=== PATIENT | female | born 1965 | race Caucasian/White ===

== ENCOUNTER 2016-06-30 15:33 | Emergency (ER) | payer BC, MEDICARE ==
[2016-06-30 15:54] VITALS: BP 121/79; PULSE 79; RESP 20; TEMP 98.2
[2016-06-30] MEDS ORDERED: ORPHENADRINE 30 MG/ML 2 ML VIAL IM STA (16:45)
[2016-06-30] MEDS ORDERED: KETOROLAC 60 MG/2 ML VIAL IM STA (16:45)
--- NOTE | 2016-06-30 17:03 | ED ---
Upper Extremity HPI - General Chief Complaint: Extremity Injury, Upper Stated Complaint: Arm/Neck Pain Time Seen by Provider: 06/30/16 16:38 Source: patient, RN notes reviewed Mode of arrival: ambulatory Limitations: no limitations - History of Present Illness Initial Comments: 51-year-old female presents emergency Department chief complaint of right-sided neck pain. Patient states she got shopping she just got this pain to the right side of her neck is throbbing type pain that is constant. Patient states that she touches the area to increased pain. Patient states it feels some muscle soreness like a spasm. Patient states she can't move the shoulder she can move the neck. Patient states that she just continued to have the pain for the last hour or so it's very tender when she touches so she thought that she should be seen. Patient does have a history of fibromyalgia. Patient states that she has no other complaints at this time. Patient denies any recent fever, chills, shortness of breath, chest pain, back pain, abdominal pain, nausea vomiting, numbness or tingling, dysuria or hematuria, constipation or diarrhea, headaches or visual changes, or any other current symptoms. - Related Data Home Medications Medication Instructions Recorded Confirmed Atorvastatin [Lipitor] 10 mg PO DAILY 09/20/15 06/30/16 Estrogen,Con/M-Progest Acet 1 tab PO DAILY 09/20/15 06/30/16 [Prempro 0.3 mg-1.5 mg Tablet] Pregabalin [Lyrica] 100 mg PO BID 09/20/15 06/30/16 Suvorexant [Belsomra] 5 mg PO HS 09/20/15 06/30/16 Albuterol Sulfate [Proair Hfa] 1 - 2 puff INHALATION RT-Q6H PRN 10/21/15 [id number] 1 - 2 tab PO Q8H PRN 10/21/15 06/30/16 [Excedrin] DULoxetine HCL [Cymbalta] 90 mg PO DAILY 10/21/15 06/30/16 HYDROcodone/APAP 10-325MG [[place] 1 tab PO Q6H PRN 10/21/15 06/30/16 10-325] Previous Rx's Medication Instructions Recorded Orphenadrine [Norflex] 100 mg PO Q12H #10 tablet.er 06/30/16 Allergies Allergy/AdvReac Type Severity Reaction Status Date / Time No Known Allergies Allergy Verified 06/30/16 15:54 Review of Systems ROS Statement: Those systems with pertinent positive or pertinent negative responses have been documented in the HPI. ROS Other: All systems not noted in ROS Statement are negative. Past Medical History Past Medical History: Fibromyalgia, Hyperlipidemia History of Any Multi-Drug Resistant Organisms: None Reported Past Surgical History: Back Surgery Additional Past Surgical History / Comment(s): hx chronic back pain withnerve damage Past Psychological History: No Psychological Hx Reported Smoking Status: Current every day smoker Past Alcohol Use History: Rare Past Drug Use History: None Reported General Exam - General Exam Comments Initial Comments: General: The patient is awake and alert, in no distress, and does not appear acutely ill. Eye: Pupils are equal, round and reactive to light. Ears, nose, mouth and throat: There are moist mucous membranes. Neck: The neck is supple, there is tenderness to palpation along the lateral aspect of the neck into the trapezius muscle. Cardiovascular: There is a regular rate and rhythm. No murmur, rub or gallop is appreciated. Respiratory: Lungs are clear to auscultation, respirations are non-labored, breath sounds are equal. No wheezes, stridor, rales, or rhonchi. Back: There is no tenderness to palpation in the midline. There is no obvious deformity. No rashes noted. Musculoskeletal: Normal ROM, no tenderness, There is no pedal edema. There is no calf tenderness or swelling. Sensation intact. Pulses equal bilaterally 2+. Neurological: CN II-XII intact, There are no obvious motor or sensory deficits. Coordination appears grossly intact. Speech is normal. Skin: Skin is warm and dry and no rashes or lesions are noted. Psychiatric: Cooperative, appropriate mood & affect, normal judgment. Limitations: no limitations Course Vital Signs 06/30/16 15:51 Temperature 98.2 F Pulse Rate 79 Respiratory 20 Rate Blood Pressure 121/79 O2 Sat by Pulse 97 Oximetry Medical Decision Making - Medical Decision Making 51-year-old female presents with what appears to be right trapezius strain along with degenerative disease which is seen on x-ray.. This time we discussed with patient. We discussed follow-up visit family's questions. Her son there controlled plan. This and they will be discharged home. We discussed return parameters and follow-up. - Radiology Data Radiology results: report reviewed, image reviewed Disposition Clinical Impression: Strain of right trapezius muscle, Degenerative disc disease, cervical Disposition: HOME SELF-CARE Condition: Stable Instructions: Cervical Strain (ED) Additional Instructions: Please use medication as discussed. Please follow up with family doctor if symptoms have not improved over the next two days. Please return to the emergency room if your symptoms increase or worsen or for any other concerns. Prescriptions: Orphenadrine [Norflex] 100 mg PO Q12H #10 tablet.er Referrals: Jay Hough III, MD [Primary Care Provider] - 1-2 days Time of Disposition: 17:21
--- NOTE | 2016-06-30 17:20 | XR ---
Cervical spine HISTORY: Shoulder pain radiating into neck 5 views of the cervical spine No comparisons Cervical vertebral bodies show preserved height, alignment, and bone mineralization. There is loss of disc height at C5-6. Some mild spondylosis is present. Prevertebral soft tissues are normal. No sign ificant foraminal encroachment. IMPRESSION: Degenerative disc disease.
== END 2016-06-30 17:15 | disposition home or self-care (01) ==
LOC: EC 15:33
DX: S46.811A Strain of other muscles, fascia and tendons at shoulder and upper arm level, right arm, initial encounter (principal); X58.XXXA Exposure to other specified factors, initial encounter; M50.30 Other cervical disc degeneration, unspecified cervical region; E78.5 Hyperlipidemia, unspecified; F17.200 Nicotine dependence, unspecified, uncomplicated; Z79.899 Other long term (current) drug therapy; Z79.890 Hormone replacement therapy
CPT/HCPCS: 99283; 96372; 72050; J2360; J1885

== ENCOUNTER → 2018-06-27 | Outpatient (CLI) | payer BC, MEDICARE ==
--- NOTE | 2018-07-01 11:00 | MM ---
Reason for exam: screening (asymptomatic). Last mammogram was performed 2 years and 2 months ago. History: Patient is postmenopausal and has history of bilateral breast cancer. Taking estrogen for 3 years 2 months. MG 3D Screening Mammo W/Cad Bilateral CC and MLO view(s) were taken. Prior study comparison: April 14, 2016, bilateral MG 3d screening mammo w/cad. March 14, 2015, mammogram, performed at [facility]. The breast tissue is heterogeneously dense. This may lower the sensitivity of mammography. No discrete abnormality. ASSESSMENT: Negative, BI-RAD 1 RECOMMENDATION: Routine screening mammogram of both breasts in 1 year.
== END | disposition home or self-care (01) ==
LOC: RADMAMWWP 15:05
PROVIDERS: ATTEND Family Medicine
DX: Z12.31 Encounter for screening mammogram for malignant neoplasm of breast (principal)
CPT/HCPCS: 77063; 77067

== ENCOUNTER → 2018-12-08 | Outpatient (CLI) | payer BC, MEDICARE ==
--- NOTE | 2018-12-08 14:36 | MR ---
EXAMINATION TYPE: MR lumbar spine wo/w con DATE OF EXAM: 12/08/2018 COMPARISON: 11/27/2015 MRI lumbar spine HISTORY: Low back pain TECHNIQUE: Multiplanar, multisequence images of the lumbar spine were acquired utilizing 10 mL intravenous Gadav ist gadolinium contrast. FINDINGS: Surgical fusion is seen of the L4-S1 vertebral bodies with intervertebral disc cages at L5- S1. Conus medullaris is unremarkable terminating at L1. Multilevel disc desiccation is seen as well a s multilevel small Schmorl's nodes. Small nonenhancing probable right superior pole renal cyst measur es 5 mm. L1-L2: Mild disc desiccation without disc herniation. No spinal canal stenosis nor neural foraminal n arrowing. L2-L3: There is disc desiccation and a very small broad-based disc bulge as well as minimal facet art hropathy and ligamentum flavum buckling however there is no evidence of spinal canal stenosis nor sujatha ral foraminal narrowing. L3-L4: There is mild facet arthropathy and ligamentum flavum buckling with a small broad-based disc b ulge however no spinal canal stenosis nor neural foraminal narrowing is seen. L4-L5: There is a broad-based disc bulge present and resection of the ligamentum flavum. No spinal ca nal stenosis nor neural foraminal narrowing. There is resection of the posterior elements. L5-S1: Intervertebral disc cages seen. No spinal canal stenosis nor neural foraminal narrowing. Resec tion of the posterior elements is present. Post contrast images demonstrate enhancing epidural fibrosis at L5-S1 on axial T1 noncontrast image 4 and postcontrast image 4. This extends from the inferior endplate of L5 to contact the anterior thec al sac and partially surrounding the exiting left L5 nerve root. There is also enhancement of the lef t L5 exiting nerve root within the thecal sac and as it exits the thecal sac. IMPRESSION: 1. Enhancing anterior left lateral epidural fibrosis at L5-S1 surrounding the forming and extending l eft L5 nerve root. There is also enhancement of the left L5 nerve root itself. 2. Mild multilevel degenerative disc disease without spinal canal stenosis nor neural foraminal narro wing.
== END | disposition home or self-care (01) ==
LOC: RADNMMAIN 11:02
PROVIDERS: ATTEND Orthopaedic Surgery
DX: M51.36 Other intervertebral disc degeneration, lumbar region (principal); G96.19 Other disorders of meninges, not elsewhere classified
CPT/HCPCS: 72158; A9585

== ENCOUNTER 2019-05-10 14:34 | Emergency (ER) | payer BC, MEDICARE ==
[2019-05-10 14:38] VITALS: BP 126/66; PULSE 85; RESP 16; TEMP 97.9
--- NOTE | 2019-05-10 15:30 | ED ---
Extremity Problem HPI - General Chief complaint: Extremity Problem,Nontraumatic Stated complaint: hand swelling/arm throbbing Time Seen by Provider: 05/10/19 14:41 Source: patient, family Mode of arrival: ambulatory Limitations: no limitations - History of Present Illness Initial comments: Patient is a 54-year-old female presenting to the emergency department with chief complaint of arm pain. Patient reports yesterday she was putting rika in a carpet for prolonged periods of time. Patient reports she went to sleep and woke up this morning she noticed some numbness and tingling in her right hand and the pain is gradually moving proximally along the right upper extremity. Patient also reports some swelling in the right hand and she is concerned her ring might be stuck in the finger. Patient denies any trauma to the hand. Patient does report full range of motion in the right hand. Patient denies any one-sided weakness or paresthesias. Patient denies blurry vision, headache, chest pain or shortness of breath. Patient denies taking any medication to alleviate the symptoms - Related Data Home Medications Medication Instructions Recorded Confirmed Atorvastatin [Lipitor] 10 mg PO DAILY 09/20/15 06/30/16 Estrogen,Con/M-Progest Acet 1 tab PO DAILY 09/20/15 06/30/16 [Prempro 0.3 mg-1.5 mg Tablet] Pregabalin [Lyrica] 100 mg PO BID 09/20/15 06/30/16 Suvorexant [Belsomra] 5 mg PO HS 09/20/15 06/30/16 Albuterol Sulfate [Proair Hfa] 1 - 2 puff INHALATION RT-Q6H PRN 10/21/15 06/30/16 [id number] 1 - 2 tab PO Q8H PRN 10/21/15 06/30/16 [Excedrin] DULoxetine HCL [Cymbalta] 90 mg PO DAILY 10/21/15 06/30/16 HYDROcodone/APAP 10-325MG [[place] 1 tab PO Q6H PRN 10/21/15 06/30/16 10-325] Previous Rx's Medication Instructions Recorded Orphenadrine [Norflex] 100 mg PO Q12H #10 tablet.er 06/30/16 Allergies Allergy/AdvReac Type Severity Reaction Status Date / Time No Known Allergies Allergy Verified 05/10/19 14:35 Review of Systems ROS Statement: Those systems with pertinent positive or pertinent negative responses have been documented in the HPI. ROS Other: All systems not noted in ROS Statement are negative. Past Medical History Past Medical History: Fibromyalgia, Hyperlipidemia History of Any Multi-Drug Resistant Organisms: None Reported Past Surgical History: Back Surgery Additional Past Surgical History / Comment(s): hx chronic back pain withnerve damage Past Psychological History: No Psychological Hx Reported Smoking Status: Current every day smoker Past Alcohol Use History: Rare Past Drug Use History: None Reported General Exam Limitations: no limitations General appearance: alert, in no apparent distress Head exam: Present: atraumatic, normocephalic, normal inspection Eye exam: Present: normal appearance Pupils: Present: normal accommodation ENT exam: Present: normal exam, mucous membranes moist Neck exam: Present: normal inspection Respiratory exam: Present: normal lung sounds bilaterally Cardiovascular Exam: Present: regular rate, normal rhythm, normal heart sounds Extremities exam: Present: normal inspection (Very mild swelling of the right hand when compared to the left. No signs of trauma. There is a ring on the fourth digit that she is unable to remove due to mild swelling in the fingers.), full ROM, tenderness (Tenderness along the anterior aspect the right wrist. Positive Phalen's test.), normal capillary refill, other (+2 ulnar and radial pulses bilaterally.) Back exam: Present: normal inspection, full ROM Neurological exam: Present: alert, oriented X3 Psychiatric exam: Present: normal affect, normal mood Skin exam: Present: warm, dry, intact, normal color Course Vital Signs 05/10/19 14:35 Temperature 97.9 F Pulse Rate 85 Respiratory 16 Rate Blood Pressure 126/66 O2 Sat by Pulse 97 Oximetry Medical Decision Making - Medical Decision Making Patient is a 54-year-old female presenting to the emergency department with a chief complaint of hand pain. Physical examination a showing a positive sounds test with some mild swelling. Patient also has some numbness and tingling that appears to be moving distantly and proximally from the wrist. The symptoms and physical examination is consistent with carpal tunnel. I advised the patient to wear a brace to help alleviate some of his symptoms. She was also advised to alternate between Tylenol and ibuprofen for pain control. Ring was removed from the fourth digit. No signs of one-sided weakness versus the other. No blurry vision headaches get instability nausea or vomiting or facial droopiness.. I low suspicion for a stroke. Strict return parameters were thoroughly discussed with patient is understanding and agreeable. Case discussed with physician. Disposition Clinical Impression: Carpal tunnel syndrome, right Disposition: HOME SELF-CARE Condition: Stable Instructions (If sedation given, give patient instructions): Carpal Tunnel Surgery (DC) Additional Instructions: Please wear a wrist brace. Alternate between Tylenol and ibuprofen for pain control. Please return to emergency department if symptoms worsen. Is patient prescribed a controlled substance at d/c from ED?: No Referrals: Jay Hough III, MD [Primary Care Provider] - 1-2 days Time of Disposition: 15:29
== END 2019-05-10 15:35 | disposition home or self-care (01) ==
LOC: EC 14:34
DX: G56.01 Carpal tunnel syndrome, right upper limb (principal); M79.7 Fibromyalgia; E78.5 Hyperlipidemia, unspecified; F17.200 Nicotine dependence, unspecified, uncomplicated; Z79.890 Hormone replacement therapy; Z79.899 Other long term (current) drug therapy; X50.9XXA Other and unspecified overexertion or strenuous movements or postures, initial encounter
CPT/HCPCS: 99283

== ENCOUNTER 2020-04-27 12:00 | Emergency (ER) | payer BC, MEDICARE ==
[2020-04-27 12:04] VITALS: RESP 18
--- NOTE | 2020-04-27 13:11 | CT ---
EXAMINATION TYPE: CT brain wo con DATE OF EXAM: 04/27/202001/2013 HISTORY: Headache, acute, normal neuro exam CT DLP: 1100.[address] of the brain was performed. The ventricles, basal cisterns and sulci overlying the cerebral convexities demonstrate mild enlargem ent. There is no evidence for intracranial hemorrhage or sulcal effacement. There is decreased attenuation about the periventricular white matter and deep white matter of both c erebral hemispheres, compatible with chronic small vessel ischemia. Differential diagnosis does inclu de demyelination. No mass effects are seen.No midline shift. Stable calcified meningioma left occipital region is uncha nged in size and appearance. Osseous calvarium is intact. If symptoms persist consider MRI. IMPRESSION: 1. Age related atrophic and chronic small vessel ischemic change without acute intracranial process s een at this time.
--- NOTE | 2020-04-27 13:14 | ED ---
Headache HPI - General Chief Complaint: Headache Stated Complaint: pain in head Time Seen by Provider: 04/27/20 12:28 Mode of arrival: ambulatory Limitations: no limitations - History of Present Illness Initial Comments: 55-year-old female presenting for chief complaint of head pain x 2 hours ago. She states she had very sporadic sharp left-sided head pain she states it did not feel exactly like a headache more like her scalp she states it came and go ahead to episode she states she does not have any pain currently denies nausea vomiting visual changes sensation deficits weakness speech changes stroke like symptoms she denies experiencing this in the past. Denies any neck pain stiffness fevers denies this being the worst headache of her life but states it was sudden. Patient denies additional complaints - Related Data Home Medications Medication Instructions Recorded Confirmed Atorvastatin [Lipitor] 10 mg PO DAILY 09/20/15 06/30/16 Estrogen,Con/M-Progest Acet 1 tab PO DAILY 09/20/15 06/30/16 [Prempro 0.3 mg-1.5 mg Tablet] Pregabalin [Lyrica] 100 mg PO BID 09/20/15 06/30/16 Suvorexant [Belsomra] 5 mg PO HS 09/20/15 06/30/16 Albuterol Sulfate [Proair Hfa] 1 - 2 puff INHALATION RT-Q6H PRN 10/21/15 06/30/16 [id number] 1 - 2 tab PO Q8H PRN 10/21/15 06/30/16 [Excedrin] DULoxetine HCL [Cymbalta] 90 mg PO DAILY 10/21/15 06/30/16 HYDROcodone/APAP 10-325MG [[place] 1 tab PO Q6H PRN 10/21/15 06/30/16 10-325] Previous Rx's Medication Instructions Recorded Orphenadrine [Norflex] 100 mg PO Q12H #10 tablet.er 06/30/16 Allergies Allergy/AdvReac Type Severity Reaction Status Date / Time No Known Allergies Allergy Verified 04/27/20 12:03 Review of Systems ROS Statement: Those systems with pertinent positive or pertinent negative responses have been documented in the HPI. ROS Other: All systems not noted in ROS Statement are negative. Past Medical History Past Medical History: Fibromyalgia, Hyperlipidemia History of Any Multi-Drug Resistant Organisms: None Reported Past Surgical History: Back Surgery Additional Past Surgical History / Comment(s): hx chronic back pain withnerve damage Past Psychological History: No Psychological Hx Reported Smoking Status: Current every day smoker Past Alcohol Use History: Rare Past Drug Use History: None Reported General Exam - General Exam Comments Initial Comments: General: The patient is awake and alert, in no distress, and does not appear acutely ill. Eye: +3 mm pupils are equal, round and reactive to light, extra-ocular movements are intact. No nystagmus. There is normal conjunctiva bilaterally. No signs of icterus. Cardiovascular: There is a regular rate and rhythm. No murmur, rub or gallop is appreciated. Respiratory: Lungs are clear to auscultation, respirations are non-labored, breath sounds are equal. No wheezes, stridor, rales, or rhonchi. Musculoskeletal: Normal ROM, no tenderness. Strength 5/5. Sensation intact. Pulses equal bilaterally 2+. Neurological: A&O x 3. CN II-XII intact, memory intact to immediately, intermediate and detention recall. Able to follow simple verbal. Able to name a common object (glove). High quality, labial (pa) and lingual (la) speech. Low quality posterior pharynx/larynx (ga) voice sounds. Able to express general knowledge (days in a week). No hemineglect or inattention noted. Finger agnosia (-) and spatially oriented (identified L index finger touched R shoulder with L index finger).Light touch and temperature sensation present over the face, chest, abdomen, back, UE bilaterally, and LE bilaterally. Able to localize point during point localization b/l and extinction. No visible bulk atrophy, hypertrophy, fasciculations, or myoclonus of the UE or LE b/l. Full PROM in UE and LE b/l. Bilateral muscle strength 5/5 for the following muscles: deltoid, biceps, triceps, brachioradialis, wrist extensors/flexor, hip flexor, hip abductors/adductors, hamstrings, quadriceps, feet dorsiflexors/plantar flexors. Finger to nose, finger to the examiners finger, and heel to marroquin coordinated and accurate b/l. Coordinated and even demonstration of hand flip, finger to thumb, and toe tap b/l. Gait is coordinated and even in stride with tandem, toe and heel walk. Maintains balance with monopedal stance. (-) Romberg. (-) pronator drift. No nuchal rigidity. Skin: Skin is warm and dry and no rashes or lesions are noted. Psychiatric: Cooperative, appropriate mood & affect, normal judgment. Limitations: no limitations Course Vital Signs 04/27/20 04/27/20 12:02 13:26 Temperature 98.1 F 98.5 F Pulse Rate 89 78 Respiratory 18 18 Rate Blood Pressure 123/85 114/72 O2 Sat by Pulse 97 97 Oximetry Medical Decision Making - Medical Decision Making 55yo female presenting for cc of head pain. CT (-). NO focal deficits. Patient appears nontoxic, asymptomatic. Discussed case with Dr Stroud who is agreeable to care plan and discharge. Tosha agreeable, return parameters discussse.d Disposition Clinical Impression: Head pain Disposition: HOME SELF-CARE Condition: Good Instructions (If sedation given, give patient instructions): Acute Headache (ED) Additional Instructions: Please use medication as discussed. Please follow-up with family doctor in the next 2 days.. Please return to emergency room if the symptoms increase or worsen or for any other concerns. Is patient prescribed a controlled substance at d/c from ED?: No Referrals: Jay Hough III, MD [Primary Care Provider] - 1-2 days Time of Disposition: 13:14
[2020-04-27 13:27] VITALS: BP 114/72; PULSE 78; TEMP 98.5
== END 2020-04-27 13:27 | disposition home or self-care (01) ==
LOC: EC 12:00
DX: R51.9 Headache, unspecified (principal); E78.5 Hyperlipidemia, unspecified; F17.200 Nicotine dependence, unspecified, uncomplicated; Z79.899 Other long term (current) drug therapy
CPT/HCPCS: 70450; 99284

== ENCOUNTER 2020-06-28 12:00 | Emergency (ER) | payer MEDICARE ==
[2020-06-28 12:09] VITALS: BP 116/72; PULSE 80; RESP 18; TEMP 98.5
[2020-06-28] MEDS ORDERED: DIAZEPAM 5 MG/ML 2 ML INJ IM ONE (12:36)
[2020-06-28] MEDS ORDERED: KETOROLAC 15 MG/ML 1 ML VIAL IM STA (12:37)
--- NOTE | 2020-06-28 12:43 | ED ---
General Adult HPI - General Chief complaint: Neck Pain/Injury Stated complaint: shoulder & neck pain/numbness Time Seen by Provider: 06/28/20 12:05 Source: patient, RN notes reviewed, old records reviewed Mode of arrival: wheelchair Limitations: no limitations - History of Present Illness Initial comments: This is a 55-year-old female presents emergency Department with no significant past medical history. Patient states she sitting talking to her when the left trapezius muscle started to spasm and cause severe pain. Patient states she had the exact same thing happen about a week and a half ago to the right trapezius muscle. Patient denies any chest pain or difficulty breathing shortness of breath per patient denies any numbness weakness. Patient denies headache patient denies any lightheadedness. Patient denies any recent fever chills or cough. Patient states the pain is increased with movement or palpating the trapezius muscle. Patient denies any radiation of the pain. - Related Data Home Medications Medication Instructions Recorded Confirmed Atorvastatin [Lipitor] 10 mg PO DAILY 09/20/15 06/30/16 Estrogen,Con/M-Progest Acet 1 tab PO DAILY 09/20/15 06/30/16 [Prempro 0.3 mg-1.5 mg Tablet] Pregabalin [Lyrica] 100 mg PO BID 09/20/15 06/30/16 Suvorexant [Belsomra] 5 mg PO HS 09/20/15 06/30/16 Albuterol Sulfate [Proair Hfa] 1 - 2 puff INHALATION RT-Q6H PRN 10/21/15 06/30/16 [id number] 1 - 2 tab PO Q8H PRN 10/21/15 06/30/16 [Excedrin] DULoxetine HCL [Cymbalta] 90 mg PO DAILY 10/21/15 06/30/16 HYDROcodone/APAP 10-325MG [[place] 1 tab PO Q6H PRN 10/21/15 06/30/16 10-325] Previous Rx's Medication Instructions Recorded Orphenadrine [Norflex] 100 mg PO Q12H #10 tablet.er 06/30/16 Cyclobenzaprine [Flexeril] 10 mg PO TID #20 tab 06/28/20 Ketorolac [Toradol] 10 mg PO Q6HR #15 tab 06/28/20 Allergies Allergy/AdvReac Type Severity Reaction Status Date / Time No Known Allergies Allergy Verified 06/28/20 12:09 Review of Systems ROS Statement: Those systems with pertinent positive or pertinent negative responses have been documented in the HPI. ROS Other: All systems not noted in ROS Statement are negative. Past Medical History Past Medical History: Fibromyalgia, Hyperlipidemia History of Any Multi-Drug Resistant Organisms: None Reported Past Surgical History: Back Surgery Additional Past Surgical History / Comment(s): hx chronic back pain withnerve damage Past Psychological History: No Psychological Hx Reported Smoking Status: Current every day smoker Past Alcohol Use History: Rare Past Drug Use History: None Reported General Exam - General Exam Comments Initial Comments: GENERAL: Patient is well-developed and well-nourished. Patient is nontoxic and well- hydrated and is in mild distress. ENT: Neck is soft and supple. No significant lymphadenopathy is noted. Oropharynx is clear. Moist mucous membranes. Neck has full range of motion without eliciting any pain. EYES: The sclera were anicteric and conjunctiva were pink and moist. Extraocular movements were intact and pupils were equal round and reactive to light. Eyelids were unremarkable. PULMONARY: Unlabored respirations. Good breath sounds bilaterally. No audible rales rhonchi or wheezing was noted. CARDIOVASCULAR: There is a regular rate and rhythm without any murmurs gallops or rubs. SKIN: Skin is clear with no lesions or rashes and otherwise unremarkable. NEUROLOGIC: Patient is alert and oriented x3. Cranial nerves II through XII are grossly intact. Motor and sensory are also intact. Normal speech, volume and content. Symmetrical smile. MUSCULOSKELETAL: Normal extremities with adequate strength and full range of motion. Touching the trapezius muscle caused her the same pain. Patient also could elicit the pain by raising upper shoulder returning her neck. LYMPHATICS: No significant lymphadenopathy is noted PSYCHIATRIC: Normal psychiatric evaluation. Limitations: no limitations Course Vital Signs 06/28/20 12:05 Temperature 98.5 F Pulse Rate 80 Respiratory 18 Rate Blood Pressure 116/72 O2 Sat by Pulse 98 Oximetry Medical Decision Making - Medical Decision Making Patient received Valium and Toradol in the emergency department. An EKG was done it shows normal sinus rhythm at 60 bpm VT interval is 132 QRS is 82 QT interval 372 QTC is 395. Patient's EKG shows no ST segment elevation or depression. Disposition Clinical Impression: Trapezius muscle spasm Disposition: HOME SELF-CARE Condition: Good Prescriptions: Cyclobenzaprine [Flexeril] 10 mg PO TID #20 tab Ketorolac [Toradol] 10 mg PO Q6HR #15 tab Is patient prescribed a controlled substance at d/c from ED?: No Referrals: Jay Hough III, MD [Primary Care Provider] - 1-2 days Time of Disposition: 12:44
== END 2020-06-28 12:54 | disposition home or self-care (01) ==
LOC: EC 12:00
DX: M62.838 Other muscle spasm (principal); E78.5 Hyperlipidemia, unspecified; M79.7 Fibromyalgia; F17.200 Nicotine dependence, unspecified, uncomplicated; Z79.899 Other long term (current) drug therapy
CPT/HCPCS: 93005; 99284; 96372 ×2; J3360; J1885

== ENCOUNTER → 2020-09-03 | Outpatient (CLI) | payer MEDICARE | END | disposition home or self-care (01) | LOC: LABWHC1 15:24 | PROVIDERS: ATTEND Nurse Practitioner Family | DX: Z20.822 Contact with and (suspected) exposure to COVID-19 (principal) | CPT/HCPCS: U0003; C9803; U0005 ==

== ENCOUNTER 2022-02-13 18:27 | Inpatient (IN) | payer MEDICARE ==
[2022-02-13] MEDS ORDERED: methylPREDNISolone SOD SUCCI 125 MG/2 ML VIAL IV STA (19:01)
[2022-02-13] MEDS ORDERED: IPRATROPIUM-ALBUTEROL 3 ML NEB INHALATION STA (19:01)
[2022-02-13] MEDS ORDERED: ALBUTEROL NEBULIZED 2.5 MG/3 ML INHALATION STA (19:01)
--- NOTE | 2022-02-13 19:08 | ED ---
SOB HPI - General Chief Complaint: Shortness of Breath Stated Complaint: BOB Time Seen by Provider: 02/13/22 18:30 Source: patient Mode of arrival: ambulatory Limitations: no limitations - History of Present Illness Initial Comments: 56-year-old female with past history of fiber myalgia hyperlipidemia presents to the emergency department with shortness of breath. Patient states that she has had symptoms for the past week. Her has been sick as well. They took 3 Covid test all of which have been negative. They do have sick contacts that are positive. Today her breathing became significantly worse. She does have an inhaler at home. States that she has not been diagnosed with asthma or COPD however was given a prescription for an albuterol inhaler by her primary care physician prophylactically because she is a smoker. States that she's been using that as well as a nebulizer which belongs to her daughter. Has not been helping her breathing. No recent steroid use. 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 Does not wear oxygen. No fevers. Admits to nausea without vomiting. No diarrhea. No other alleviating, precipitating or modifying factors - Related Data Home Medications Medication Instructions Recorded Confirmed Atorvastatin [Lipitor] 10 mg PO DAILY 09/20/15 02/13/22 Albuterol Sulfate [Proair Hfa] 1 - 2 puff INHALATION RT-Q4H PRN 10/21/15 02/13/22 DULoxetine HCL [Cymbalta] 90 mg PO DAILY 10/21/15 02/13/22 Aspirin/Acetaminophen/Caffeine 2 tab PO Q6H PRN 02/13/22 02/13/22 [Excedrin Migraine Caplet] Nystatin 100,000 Unit/gm Oint 1 applic TOPICAL BID PRN 02/13/22 02/13/22 [Mycostatin Oint] Nystatin [Nystop] 1 applic TOPICAL BID PRN 02/13/22 02/13/22 Pregabalin [Lyrica] 300 mg PO Q12H 02/13/22 02/13/22 Tiotropium Br/Olodaterol HCl 2 puff INHALATION RT-DAILY 02/13/22 02/13/22 [Stiolto Respimat Inhal [place]] Zolpidem [Ambien] 10 mg PO HS 02/13/22 02/13/22 Allergies Allergy/AdvReac Type Severity Reaction Status Date / Time No Known Allergies Allergy Verified 02/13/22 20:42 Review of Systems ROS Statement: Those systems with pertinent positive or pertinent negative responses have been documented in the HPI. ROS Other: All systems not noted in ROS Statement are negative. Past Medical History Past Medical History: Fibromyalgia, Hyperlipidemia History of Any Multi-Drug Resistant Organisms: None Reported Past Surgical History: Back Surgery Additional Past Surgical History / Comment(s): hx chronic back pain withnerve damage Past Psychological History: No Psychological Hx Reported Smoking Status: Current every day smoker Past Alcohol Use History: Rare Past Drug Use History: None Reported General Exam Limitations: no limitations General appearance: alert, other (mild distress secondary to work of breathing) Head exam: Present: atraumatic, normocephalic, normal inspection Eye exam: Present: normal appearance, PERRL, EOMI. Absent: scleral icterus, conjunctival injection, periorbital swelling ENT exam: Present: normal exam, mucous membranes moist Neck exam: Present: normal inspection. Absent: tenderness, meningismus, lymphadenopathy Respiratory exam: Present: wheezes (diffuse, audible without stethoscope), other (tachypnia, conversational dyspnea). Absent: respiratory distress, rales, rhonchi, stridor Cardiovascular Exam: Present: regular rate, normal rhythm, normal heart sounds. Absent: systolic murmur, diastolic murmur, rubs, gallop, clicks GI/Abdominal exam: Present: soft, normal bowel sounds. Absent: distended, tenderness, guarding, rebound, rigid Extremities exam: Present: normal inspection, full ROM, normal capillary refill. Absent: tenderness, pedal edema, joint swelling, calf tenderness Back exam: Present: normal inspection Neurological exam: Present: alert, oriented X3, CN II-XII intact Psychiatric exam: Present: normal affect, normal mood Skin exam: Present: warm, dry, intact, normal color. Absent: rash Course Vital Signs 02/13/22 02/13/22 02/13/22 18:30 19:25 19:35 Temperature 98 F Pulse Rate 62 79 78 Respiratory 18 Rate Blood Pressure 130/86 O2 Sat by Pulse 96 Oximetry 02/13/22 02/13/22 20:02 22:42 Temperature Pulse Rate 97 99 Respiratory 20 18 Rate Blood Pressure 117/73 116/75 O2 Sat by Pulse 95 96 Oximetry Medical Decision Making - Medical Decision Making Upon arrival the patient was placed into room 7. Patient is audibly wheezy with conversational dyspnea. IV is established and laboratory studies were conducted. Patient was given a DuoNeb breathing treatment followed by an albuterol treatment. Laboratory studies are reviewed which demonstrates that she is positive for Covid. Chest x-ray clear. Patient reevaluated after her breathing treatments and still remains diffusely wheezy. Due to her increased worker breathing I did recommend admission for which the patient was agreeable. Called and spoke with Kita from [facility] she was agreeable. I will place pulmonology on consult - Lab Data Result diagrams: 02/13/22 19:25 02/13/22 19:25 Lab Results 02/13/22 02/13/22 02/13/22 Range/Units 19:25 19:25 19:25 WBC 6.4 (3.8-10.6) k/uL RBC 4.57 (3.80-5.40) m/uL Hgb 14.5 (11.4-16.0) gm/dL Hct 44.7 (34.0-46.0) % MCV 97.7 (80.0-100.0) fL MCH 31.6 (25.0-35.0) pg MCHC 32.3 (31.0-37.0) g/dL RDW 13.4 (11.5-15.5) % Plt Count 305 (150-450) k/uL MPV 7.4 Neutrophils % 51 % Lymphocytes % 33 % Monocytes % 6 % Eosinophils % 5 % Basophils % 1 % Neutrophils # 3.3 (1.3-7.7) k/uL Lymphocytes # 2.1 (1.0-4.8) k/uL Monocytes # 0.4 (0-1.0) k/uL Eosinophils # 0.3 (0-0.7) k/uL Basophils # 0.1 (0-0.2) k/uL PT 9.5 (9.0-12.0) sec INR 0.8 (<1.2) APTT 26.4 (22.0-30.0) sec Sodium 141 (137-145) mmol/L Potassium 4.1 (3.5-5.1) mmol/L Chloride 105 (98-107) mmol/L Carbon Dioxide 23 (22-30) mmol/L Anion Gap 13 mmol/L BUN 12 (7-17) mg/dL Creatinine 0.92 (0.52-1.04) mg/dL Est GFR (CKD-EPI)AfAm 82 (>60 ml/min/1.73 sqM) Est GFR (CKD-EPI)NonAf 71 (>60 ml/min/1.73 sqM) Glucose 126 H (74-99) mg/dL Plasma Lactic Acid Fabrice (0.7-2.0) mmol/L Calcium 9.5 (8.4-10.2) mg/dL Total Bilirubin 0.2 (0.2-1.3) mg/dL AST 23 (14-36) U/L ALT 24 (4-34) U/L Alkaline Phosphatase 131 H (38-126) U/L Troponin I (0.000-0.034) ng/mL NT-Pro-B Natriuret Pep pg/mL Total Protein 6.7 (6.3-8.2) g/dL Albumin 4.1 (3.5-5.0) g/dL Coronavirus (PCR) (Not Detectd) Influenza Type A RNA (Not Detectd) Influenza Type B (PCR) (Not Detectd) 02/13/22 02/13/22 02/13/22 Range/Units 19:25 19:25 19:25 WBC (3.8-10.6) k/uL RBC (3.80-5.40) m/uL Hgb (11.4-16.0) gm/dL Hct (34.0-46.0) % MCV (80.0-100.0) fL MCH (25.0-35.0) pg MCHC (31.0-37.0) g/dL RDW (11.5-15.5) % Plt Count (150-450) k/uL MPV Neutrophils % % Lymphocytes % % Monocytes % % Eosinophils % % Basophils % % Neutrophils # (1.3-7.7) k/uL Lymphocytes # (1.0-4.8) k/uL Monocytes # (0-1.0) k/uL Eosinophils # (0-0.7) k/uL Basophils # (0-0.2) k/uL PT (9.0-12.0) sec INR (<1.2) APTT (22.0-30.0) sec Sodium (137-145) mmol/L Potassium (3.5-5.1) mmol/L Chloride (98-107) mmol/L Carbon Dioxide (22-30) mmol/L Anion Gap mmol/L BUN (7-17) mg/dL Creatinine (0.52-1.04) mg/dL Est GFR (CKD-EPI)AfAm (>60 ml/min/1.73 sqM) Est GFR (CKD-EPI)NonAf (>60 ml/min/1.73 sqM) Glucose (74-99) mg/dL Plasma Lactic Acid Fabrice 1.2 (0.7-2.0) mmol/L Calcium (8.4-10.2) mg/dL Total Bilirubin (0.2-1.3) mg/dL AST (14-36) U/L ALT (4-34) U/L Alkaline Phosphatase (38-126) U/L Troponin I <0.012 (0.000-0.034) ng/mL NT-Pro-B Natriuret Pep <11 pg/mL Total Protein (6.3-8.2) g/dL Albumin (3.5-5.0) g/dL Coronavirus (PCR) (Not Detectd) Influenza Type A RNA (Not Detectd) Influenza Type B (PCR) (Not Detectd) 02/13/22 02/13/22 Range/Units 19:50 19:50 WBC (3.8-10.6) k/uL RBC (3.80-5.40) m/uL Hgb (11.4-16.0) gm/dL Hct (34.0-46.0) % MCV (80.0-100.0) fL MCH (25.0-35.0) pg MCHC (31.0-37.0) g/dL RDW (11.5-15.5) % Plt Count (150-450) k/uL MPV Neutrophils % % Lymphocytes % % Monocytes % % Eosinophils % % Basophils % % Neutrophils # (1.3-7.7) k/uL Lymphocytes # (1.0-4.8) k/uL Monocytes # (0-1.0) k/uL Eosinophils # (0-0.7) k/uL Basophils # (0-0.2) k/uL PT (9.0-12.0) sec INR (<1.2) APTT (22.0-30.0) sec Sodium (137-145) mmol/L Potassium (3.5-5.1) mmol/L Chloride (98-107) mmol/L Carbon Dioxide (22-30) mmol/L Anion Gap mmol/L BUN (7-17) mg/dL Creatinine (0.52-1.04) mg/dL Est GFR (CKD-EPI)AfAm (>60 ml/min/1.73 sqM) Est GFR (CKD-EPI)NonAf (>60 ml/min/1.73 sqM) Glucose (74-99) mg/dL Plasma Lactic Acid Fabrice (0.7-2.0) mmol/L Calcium (8.4-10.2) mg/dL Total Bilirubin (0.2-1.3) mg/dL AST (14-36) U/L ALT (4-34) U/L Alkaline Phosphatase (38-126) U/L Troponin I (0.000-0.034) ng/mL NT-Pro-B Natriuret Pep pg/mL Total Protein (6.3-8.2) g/dL Albumin (3.5-5.0) g/dL Coronavirus (PCR) Detected A (Not Detectd) Influenza Type A RNA Not Detected (Not Detectd) Influenza Type B (PCR) Not Detected (Not Detectd) - EKG Data EKG Comments: EKG demonstrates sinus rhythm with a rate of 71. [place] interval 39. QRS 98. QTC 385. No acute ST segment elevations or depressions Disposition Clinical Impression: COPD with acute exacerbation, COVID-19 Disposition: ADMITTED IP TO THIS HOSP Condition: Stable Is patient prescribed a controlled substance at d/c from ED?: No Time of Disposition: 20:44 Decision to Admit Reason: Admit from EC Decision Date: 02/13/22 Decision Time: 20:44
[2022-02-13 19:44] LABS: Basophils # (A) 0.1 k/uL (0-0.2); Basophils % (A) 1 %; Eosinophils # (A) 0.3 k/uL (0-0.7); Eosinophils % (A) 5 %; HCT 44.7 % (34.0-46.0); HGB 14.5 gm/dL (11.4-16.0); Lymphocytes # (A) 2.1 k/uL (1.0-4.8); Lymphocytes % (A) 33 %; MCH 31.6 pg (25.0-35.0); MCHC 32.3 g/dL (31.0-37.0); MCV 97.7 fL (80.0-100.0); Mean Platelet Volume 7.4; Monocytes # (A) 0.4 k/uL (0-1.0); Monocytes % (A) 6 %; Neutrophils # (A) 3.3 k/uL (1.3-7.7); Neutrophils % (A) 51 %; Platelet Count 305 k/uL (150-450); RBC 4.57 m/uL (3.80-5.40); RDW 13.4 % (11.5-15.5); WBC 6.4 k/uL (3.8-10.6)
[2022-02-13 19:56] LABS: INR 0.8 (<1.2); Partial Thromboplastin Time 26.4 sec (22.0-30.0); Prothrombin Time 9.5 sec (9.0-12.0)
[2022-02-13 19:59] LABS: Albumin 4.1 g/dL (3.5-5.0); Calcium 9.5 mg/dL (8.4-10.2); Potassium 4.1 mmol/L (3.5-5.1); Total Bilirubin 0.2 mg/dL (0.2-1.3); Total Protein 6.7 g/dL (6.3-8.2)
--- NOTE | 2022-02-13 20:02 | XR ---
EXAMINATION TYPE: XR chest 2V DATE OF EXAM: 02/13/2022 COMPARISON: 09/26/2014 HISTORY: Short of breath TECHNIQUE: FINDINGS: Heart and mediastinum are normal. Lungs are clear. Diaphragm is normal. Bony thorax is inta ct. IMPRESSION: Normal chest. No adverse change
[2022-02-13] MEDS ORDERED: NALOXONE 0.4 MG/ML 1 ML VIAL IV PRN (20:44)
[2022-02-13] MEDS: ZOLPIDEM 5 MG TAB PO SCH (23:52)
[2022-02-13] MEDS: PREGABALIN 100 MG CAP PO SCH (23:52)
[2022-02-14] MEDS ORDERED: IPRATROPIUM-ALBUTEROL 3 ML NEB INHALATION SCH
[2022-02-14] MEDS: SODIUM CHLORIDE 0.9% 1,000 ML IV SCH ×2 (00:45→12:47)
[2022-02-14] MEDS: methylPREDNISolone SOD SUCCI 125 MG/2 ML VIAL IV SCH ×2 (04:24→08:06)
[2022-02-14] MEDS: ALBUTEROL HFA INHALER INHALATION PRN ×3 (07:54→19:50)
[2022-02-14] MEDS ORDERED: FORMOTEROL FUMARATE 20 MCG/2 ML NEBU INHALATION SCH (08:00)
[2022-02-14] MEDS ORDERED: IPRATROPIUM 0.5 MG/2.5 ML NEBU INHALATION SCH (08:00)
[2022-02-14] MEDS: PREGABALIN 100 MG CAP PO SCH ×2 (08:05→20:13)
[2022-02-14] MEDS: DULoxetine HCL 30 MG CAPSULE.DR PO SCH (08:05)
[2022-02-14] MEDS: ATORVASTATIN 10 MG TAB PO SCH (08:05)
[2022-02-14 09:40] LABS: Basophils # (A) 0.01 X 10*3/uL (0.00-0.10); Basophils % (A) 0.2 %; Eosinophils # (A) 0 X 10*3/uL (0.04-0.35); Eosinophils % (A) 0 %; HCT 40.6 % (37.2-46.3); HGB 13.4 g/dL (12.0-15.0); Immature Grans, Automated 0.3 %; MCH 31.4 pg (27.0-32.0); MCV 95.1 fL (80.0-97.0); Mean Platelet Volume 9.7 fL (9.5-12.2); Monocytes # (A) 0.08 X 10*3/uL (0.20-1.00); Monocytes % (A) 1.3 %; NRBC Per 100 WBC 0 /100 WBCS (0.0-0.0); Neutrophils # (A) 4.98 X 10*3/uL (1.80-7.70); Neutrophils % (A) 83.2 %; Platelet Count 290 X 10*3/uL (140-440); RBC 4.27 X 10*6/uL (4.10-5.20); RDW 13.1 % (11.5-14.5); WBC 5.99 X 10*3/uL (4.50-10.00)
--- NOTE | 2022-02-14 11:13 | P.CNPUL ---
History of Present Illness Consult date: 02/14/22 Requesting physician: Jay Alvarez Reason for consult: dyspnea, cough Chief complaint: Shortness of breath History of present illness: This is a very pleasant 56-year-old female patient who follows with Dr. Hough is her primary care provider. She has a history of hyperlipidemia, depression, fibromyalgia, chronic and ongoing tobacco dependence of 40 years, suspected chronic obstructive pulmonary disease maintained on Stiolto and Pro air, chronic back pain with nerve damage. The last several days she has been having increasing shortness of breath, cough or congestion. She does have a nathalie [id number] and grandson who are positive for CoVID. She too is positive by PCR yesterday. His x-ray revealed no acute pulmonary process. White count 5.99. Hemoglobin 13.4. Platelets 290. Lymphocytes 0.9. 141. Potassium 4.1. Chloride 105. Bicarb 23. BUN 12. Creatinine 0.92. Glucose 126. AST 23. ALT 24. Influenza screen negative. She is seen today in consultation on the regular medical floor. She is currently sitting up in a chair at the bedside. Awake and alert in no acute distress. She's been afebrile. Hemodynamically stable. Maintaining O2 saturations in the mid 90s on 2 L/m per nasal cannula. She was initiated on Symbicort, albuterol, IV Solu-Medrol. She is vaccinated and boosted. Review of Systems REVIEW OF SYSTEMS: CONSTITUTIONAL: Denies any recent significant weight loss or weight gain. EYES: Denies change in vision. EARS, NOSE, MOUTH, THROAT: Denies headaches, denies sore throat. CARDIOVASCULAR: Denies chest pain, palpitations or syncopal episodes. RESPIRATORY: Oxygen 4 shortness of breath, cough, congestion no hemoptysis. GASTROINTESTINAL: Denies change in appetite, denies abdominal pain GENITOURINARY: Denies hematuria, denies infections. MUSKULOSKELETAL: Denies pain, denies swelling. INTEGUMENTARY: Denies rash, denies eczema. NEUROLOGICAL: Denies recent memory loss, no recent seizure activity. PSYCHIATRIC: Denies anxiety, denies depression. HEMATOLOGIC/LYMPHATIC: Denies anemia, denies enlarged lymph nodes. Past Medical History Past Medical History: Fibromyalgia, Hyperlipidemia History of Any Multi-Drug Resistant Organisms: None Reported Past Surgical History: Back Surgery Additional Past Surgical History / Comment(s): hx chronic back pain withnerve damage Past Anesthesia/Blood Transfusion Reactions: No Reported Reaction Past Psychological History: No Psychological Hx Reported Smoking Status: Current every day smoker Past Alcohol Use History: Rare Past Drug Use History: None Reported Medications and Allergies Home Medications Medication Instructions Recorded Confirmed Type Atorvastatin [Lipitor] 10 mg PO DAILY 09/20/15 02/13/22 History Albuterol Sulfate [Proair Hfa] 1 - 2 puff INHALATION RT-Q4H PRN 10/21/15 02/13/22 History DULoxetine HCL [Cymbalta] 90 mg PO DAILY 10/21/15 02/13/22 History Aspirin/Acetaminophen/Caffeine 2 tab PO Q6H PRN 02/13/22 02/13/22 History [Excedrin Migraine Caplet] Nystatin 100,000 Unit/gm Oint 1 applic TOPICAL BID PRN 02/13/22 02/13/22 History [Mycostatin Oint] Nystatin [Nystop] 1 applic TOPICAL BID PRN 02/13/22 02/13/22 History Pregabalin [Lyrica] 300 mg PO Q12H 02/13/22 02/13/22 History Tiotropium Br/Olodaterol HCl 2 puff INHALATION RT-DAILY 02/13/22 02/13/22 History [Stiolto Respimat Inhal [place]] Zolpidem [Ambien] 10 mg PO HS 02/13/22 02/13/22 History Allergies Allergy/AdvReac Type Severity Reaction Status Date / Time No Known Allergies Allergy Verified 02/13/22 20:42 Physical Exam Vitals: Vital Signs Temp Pulse Pulse Resp BP BP Pulse Ox 02/14/22 10:19 97.4 F L 87 12 121/74 91 L 02/14/22 06:13 98.3 F 85 17 117/73 95 02/14/22 02:00 98.4 F 80 17 100/60 97 02/13/22 22:42 99 18 116/75 96 02/13/22 20:02 97 20 117/73 95 02/13/22 19:35 78 02/13/22 19:25 79 02/13/22 18:30 98 F 62 18 130/86 96 Intake and Output 02/13/22 02/14/22 02/14/22 22:59 06:59 14:59 Other: # Voids 2 Weight 95.254 kg 95.254 kg GENERAL EXAM: Alert, very pleasant 56-year-old female, on 2 L nasal cannula, up in a chair, comfortable in no apparent distress. HEAD: Normocephalic. EYES: Normal reaction of pupils, equal size. NOSE: Clear with pink turbinates. THROAT: No erythema or exudates. NECK: No masses, no JVD. CHEST: No chest wall deformity. LUNGS: Equal air entry with no crackles, wheeze, rhonchi or dullness. CVS: S1 and S2 normal with no audible murmur, regular rhythm. ABDOMEN: No hepatosplenomegaly, normal bowel sounds, no guarding or rigidity. SPINE: No scoliosis or deformity SKIN: No rashes CENTRAL NERVOUS SYSTEM: No focal deficits, tone is normal in all 4 extremities. EXTREMITIES: There is no peripheral edema. No clubbing, no cyanosis. Peripheral pulses are intact. Results - Laboratory Findings CBC and BMP: 02/14/22 06:25 02/13/22 19:25 PT/INR, D-dimer PT 9.5 sec (9.0-12.0) 02/13/22 19:25 INR 0.8 (<1.2) 02/13/22 19:25 Abnormal lab findings: Abnormal Labs 02/13/22 02/13/22 02/14/22 19:25 19:50 06:25 Monocytes # 0.08 L Eosinophils # 0 L Glucose 126 H Alkaline Phosphatase 131 H Coronavirus (PCR) Detected A - Diagnostic Findings Chest x-ray: image reviewed Assessment and Plan Assessment: Acute COVID-19 infection without evidence of COVID-19 pneumonia. The patient has been vaccinated and boosted. Acute hypoxemic respiratory failure secondary to above Chronic and ongoing tobacco dependence of 40 years Fibromyalgia Hyperlipidemia History of chronic back pain History of depression Plan: The patient was seen and evaluated Chest x-ray, labs and medications reviewed Add Symbicort, albuterol, Solu-Medrol Check a pro-calcitonin Check a d-dimer Add Lovenox 40 mg subcu daily We will continue to follow and make further recommendations based on her cl inical status I have personally seen and examined the patient, performed the documentation and the assessment and plan as written. Number of minutes spent on the visit: 20.
[2022-02-14] MEDS: SYMBICORT 160-4.5 MCG INHALER INHALATION SCH ×2 (11:30→19:51)
--- NOTE | 2022-02-14 11:33 | P.HPIM ---
History of Present Illness Patient is a 56-year-old female came in with complains of shortness of breath found to have a COVID-19 multiple family has members at similar symptoms. Chest x-ray did not show any significant abnormality. Patient does smoke and has been smoking for 40 years patient is wheezing on exam is admitted for COPD exacerbation patient was comparing of dry cough doesn't have any fever chills doesn't have any infiltrate, patient was requiring oxygen yesterday presently on room air but desaturates very quickly upon ambulation. REVIEW OF SYSTEMS: CONSTITUTIONAL: No fever, no malaise, no fatigue. HEENT: No recent visual problems or hearing problems. Denied any sore throat. CARDIOVASCULAR: No chest pain, orthopnea, PND, no palpitations, no syncope. PULMONARY: no hemoptysis. GASTROINTESTINAL: No diarrhea, no nausea, no vomiting, no abdominal pain. NEUROLOGICAL: No headaches, no weakness, no numbness. HEMATOLOGICAL: Denies any bleeding or petechiae. GENITOURINARY: Denies any burning micturition, frequency, or urgency. MUSCULOSKELETAL/RHEUMATOLOGICAL: Denies any joint pain, swelling, or any muscle pain. ENDOCRINE: Denies any polyuria or polydipsia. The rest of the 14-point review of systems is negative. PHYSICAL EXAMINATION: GENERAL: The patient is alert and oriented x3, not in any acute distress. Well developed, well nourished. HEENT: Pupils are round and equally reacting to light. EOMI. No scleral icterus. No conjunctival pallor. Normocephalic, atraumatic. No pharyngeal erythema. No thyromegaly. CARDIOVASCULAR: S1 and S2 present. No murmurs, rubs, or gallops. PULMONARY: Expiratory wheezing on exam ABDOMEN: Soft, nontender, nondistended, normoactive bowel sounds. No palpable organomegaly. MUSCULOSKELETAL: No joint swelling or deformity. EXTREMITIES: No cyanosis, clubbing, or pedal edema. NEUROLOGICAL: Gross neurological examination did not reveal any focal deficits. SKIN: No rashes. Assessment and plan -Acute COPD exacerbation: Secondary to COVID-19 patient although doesn't have any significant pneumonia patient does have COVID-19 infection and patient will be continued on steroids inhalational treatments. -Nicotine use: Counseling was provided next and haven't COVID-19 infection next and hypertension -hyperlipidemia Hypertension depression DVT prophylaxis: Lovenox Patient probably can be discharged tomorrow patient and he has significant improvement. Past Medical History Past Medical History: Fibromyalgia, Hyperlipidemia History of Any Multi-Drug Resistant Organisms: None Reported Past Surgical History: Back Surgery Additional Past Surgical History / Comment(s): hx chronic back pain withnerve damage Past Anesthesia/Blood Transfusion Reactions: No Reported Reaction Past Psychological History: No Psychological Hx Reported Smoking Status: Current every day smoker Past Alcohol Use History: Rare Past Drug Use History: None Reported Medications and Allergies Home Medications Medication Instructions Recorded Confirmed Type Atorvastatin [Lipitor] 10 mg PO DAILY 09/20/15 02/13/22 History Albuterol Sulfate [Proair Hfa] 1 - 2 puff INHALATION RT-Q4H PRN 10/21/15 02/13/22 History DULoxetine HCL [Cymbalta] 90 mg PO DAILY 10/21/15 02/13/22 History Aspirin/Acetaminophen/Caffeine 2 tab PO Q6H PRN 02/13/22 02/13/22 History [Excedrin Migraine Caplet] Nystatin 100,000 Unit/gm Oint 1 applic TOPICAL BID PRN 02/13/22 02/13/22 History [Mycostatin Oint] Nystatin [Nystop] 1 applic TOPICAL BID PRN 02/13/22 02/13/22 History Pregabalin [Lyrica] 300 mg PO Q12H 02/13/22 02/13/22 History Tiotropium Br/Olodaterol HCl 2 puff INHALATION RT-DAILY 02/13/22 02/13/22 Histo ry [Stiolto Respimat Inhal [place]] Zolpidem [Ambien] 10 mg PO HS 02/13/22 02/13/22 History Allergies Allergy/AdvReac Type Severity Reaction Status Date / Time No Known Allergies Allergy Verified 02/13/22 20:42 Physical Exam Vitals: Vital Signs Temp Pulse Pulse Resp BP BP Pulse Ox 02/14/22 10:19 97.4 F L 87 12 121/74 91 L 02/14/22 06:13 98.3 F 85 17 117/73 95 02/14/22 02:00 98.4 F 80 17 100/60 97 02/13/22 22:42 99 18 116/75 96 02/13/22 20:02 97 20 117/73 95 02/13/22 19:35 78 02/13/22 19:25 79 02/13/22 18:30 98 F 62 18 130/86 96 Intake and Output 02/13/22 02/14/22 02/14/22 22:59 06:59 14:59 Other: # Voids 2 Weight 95.254 kg 95.254 kg Results CBC & Chem 7: 02/14/22 06:25 02/13/22 19:25 Labs: Abnormal Lab Results - Last 24 Hours (Table) 02/13/22 02/13/22 02/14/22 Range/Units 19:25 19:50 06:25 Monocytes # 0.08 L (0.20-1.00) X 10*3/uL Eosinophils # 0 L (0.04-0.35) X 10*3/uL Glucose 126 H (74-99) mg/dL Alkaline Phosphatase 131 H (38-126) U/L Coronavirus (PCR) Detected A (Not Detectd) Thrombosis Risk Factor Assmnt - Choose All That Apply Each Factor Represents 1 point: Age 41-60 years, Serious lung disease incl. pneumonia (< 1month) Thrombosis Risk Factor Assessment Total Risk Factor Score: 2 Thrombosis Risk Factor Assessment Level: Low Risk
[2022-02-14 12:35] LABS: African American GFR (CKD) 92.1 (60.0-200.0); Anion Gap 12.9 mmol/L (10.00-18.00); BUN/Creat Ratio 12.35 Ratio (12.00-20.00); Blood Urea Nitrogen 10.3 mg/dL (9.0-27.0); Calcium 9.3 mg/dL (8.7-10.3); Carbon Dioxide 22.6 mmol/L (20.0-27.5); Non-African American GFR(CKD) 79.5 (60.0-200.0); Potassium 4.6 mmol/L (3.5-5.5)
[2022-02-14] MEDS: ENOXAPARIN 40 MG/0.4 ML SYRINGE SQ SCH (12:51)
[2022-02-14] MEDS: ACETAMINOPHEN TAB 325 MG TAB PO PRN ×2 (12:58→20:13)
[2022-02-14] MEDS: ZOLPIDEM 5 MG TAB PO SCH (20:12)
[2022-02-14] MEDS: methylPREDNISolone SOD SUCCI 40 MG/ML 1 ML VIAL IV SCH (20:14)
[2022-02-15] MEDS: SODIUM CHLORIDE 0.9% 1,000 ML IV SCH (04:00)
[2022-02-15] MEDS: PREGABALIN 100 MG CAP PO SCH (08:01)
[2022-02-15] MEDS: ENOXAPARIN 40 MG/0.4 ML SYRINGE SQ SCH (08:01)
[2022-02-15] MEDS: ATORVASTATIN 10 MG TAB PO SCH (08:01)
[2022-02-15] MEDS: DULoxetine HCL 30 MG CAPSULE.DR PO SCH (08:01)
[2022-02-15] MEDS: methylPREDNISolone SOD SUCCI 40 MG/ML 1 ML VIAL IV SCH (08:01)
[2022-02-15] MEDS: SYMBICORT 160-4.5 MCG INHALER INHALATION SCH (09:36)
[2022-02-15 10:15] VITALS: BP 124/81; PULSE 81; RESP 16; TEMP 98.4
--- NOTE | 2022-02-15 13:03 | P.PN ---
Subjective Progress Note Date: 02/15/22 This is a very pleasant 56-year-old female patient who follows with Dr. Hough is her primary care provider. She has a history of hyperlipidemia, depression, fibromyalgia, chronic and ongoing tobacco dependence of 40 years, suspected chronic obstructive pulmonary disease maintained on Stiolto and Pro air, chronic back pain with nerve damage. The last several days she has been having increasing shortness of breath, cough or congestion. She does have a [id number] and grandson who are positive for CoVID. She too is positive by PCR yesterday. His x-ray revealed no acute pulmonary process. White count 5.99. Hemoglobin 13.4. Platelets 290. Lymphocytes 0.9. 141. Potassium 4.1. Chloride 105. Bicarb 23. BUN 12. Creatinine 0.92. Glucose 126. AST 23. ALT 24. Influenza screen negative. She is seen today in consultation on the regular medical floor. She is currently sitting up in a chair at the bedside. Awake and alert in no acute distress. She's been afebrile. Hemodynamically stable. Maintaining O2 saturations in the mid 90s on 2 L/m per nasal cannula. She was initiated on Symbicort, albuterol, IV Solu-Medrol. She is vaccinated and boosted. The patient is seen today 02/15/2022 in follow-up on the regular medical floor. She is currently resting comfortably in bed. Awake and alert in no acute distress. Denies any worsening shortness of breath, cough or congestion. No nausea, vomiting or diarrhea. She is maintaining good O2 saturations in the 90s on room air. She's afebrile. Hemodynamically stable. Pro calcitonin 0.08. She is continued on Symbicort, albuterol, IV Solu-Medrol. Objective - Vital Signs Vital signs: Vital Signs Temp 98.4 F 02/15/22 10:00 Pulse 81 02/15/22 10:00 Resp 16 02/15/22 10:00 BP 124/81 02/15/22 10:00 Pulse Ox 93 L 02/15/22 10:00 FiO2 Intake & Output 02/14/22 02/15/22 02/15/22 18:59 06:59 18:59 Other: Voiding Method Toilet # Voids 5 2 - Exam GENERAL EXAM: Alert, very pleasant 56-year-old female, on room air, comfortable in no apparent distress. HEAD: Normocephalic. EYES: Normal reaction of pupils, equal size. NOSE: Clear with pink turbinates. THROAT: No erythema or exudates. NECK: No masses, no JVD. CHEST: No chest wall deformity. LUNGS: Equal air entry with no crackles, wheeze, rhonchi or dullness. CVS: S1 and S2 normal with no audible murmur, regular rhythm. ABDOMEN: No hepatosplenomegaly, normal bowel sounds, no guarding or rigidity. SPINE: No scoliosis or deformity SKIN: No rashes CENTRAL NERVOUS SYSTEM: No focal deficits, tone is normal in all 4 extremities. EXTREMITIES: There is no peripheral edema. No clubbing, no cyanosis. Peripheral pulses are intact. - Labs CBC & Chem 7: 02/14/22 06:25 02/14/22 06:25 Assessment and Plan Assessment: Acute COVID-19 infection without evidence of COVID-19 pneumonia. The patient has been vaccinated and boosted. Acute hypoxemic respiratory failure secondary to above, recovered and on room air Chronic and ongoing tobacco dependence of 40 years Fibromyalgia Hyperlipidemia History of chronic back pain History of depression Plan: The patient was seen and evaluated Stable and on room air Continue Symbicort, albuterol, prednisone taper Cleared for discharge from the pulmonary standpoint She would benefit from a follow-up in the office with full PFTs once recovered I have personally seen and examined the patient, performed the documentation and the assessment and plan as written. Number of minutes spent on the visit: 10. I have personally seen and examined the patient and reviewed the documentation. I performed a joint evaluation with the nurse practitioner in this evaluation was done more than 10 minutes. I fully agree with the documentation above and the plan of care. Patient is doing well. Oxygenation is improved. The patient is currently on room air oxygen. Discharge home on a course of Decadron completed total of 10 day
--- NOTE | 2022-02-17 09:54 | P.DS ---
Providers Date of admission: 02/13/22 20:44 Expected date of discharge: 02/15/22 Attending physician: Jay Alvarez Consults: 02/13/22 20:44 Consult Physician Urgent Consulting Provider: Marin Sheehan Reason/Comments: covid-19, suspected copd Do you want consulting provider notified?: Yes Primary care physician: Jay Hough Hospital Course: Final diagnosis -Acute COPD exacerbation: Secondary to COVID-19 patient although doesn't have any significant pneumonia patient does have COVID-19 infection -Nicotine use -hypertension -hyperlipidemia -depression -DVT prophylaxis Discharge disposition Patient is being discharged in a stable condition with guarded prognosis to home. Patient will follow-up with Dr. Hough in the outpatient setting upon discharge. Patient is to follow-up with pulmonary as scheduled. Patient is to complete a quick prednisone taper on discharge. Total time taken is greater than 35 minutes. Hospital course This is a 56-year-old female who was recently admitted with shortness of breath and was found to have COVID-19 with multiple family members also with similar symptoms. Patient does continue to smoke and does have COPD acute exacerbation. Pulmonary following the patient recommending outpatient follow-up once Covid symptoms have cleared. Patient was maintained on steroids and will continue with the prednisone taper on discharge. Patient to continue with inhalers as well. Patient reports to feeling much better and would like to go home. Currently no reports of chest pain, worsening shortness of breath, or palpit ations. Patient is afebrile. No reports of nausea or vomiting and patient is tolerating diet. Patient will be discharged home today. Physical exam: Gen: This is a 56-year-old female awake, alert and oriented 3, well-developed, well-nourished HEENT: Head is atraumatic, normocephalic. Pupils equal, round. Sclerae is anicteric. NECK: Supple. No JVD. No lymphadenopathy. No thyromegaly. LUNGS: Clear to auscultation. Some minimal expiratory wheezing and some scattered coarse rhonchi. No intercostal retractions. HEART: Regular rate and rhythm. No murmur. ABDOMEN: Soft. Bowel sounds are present. No masses. No tenderness. EXTREMITIES: No pedal edema. No calf tenderness. NEUROLOGICAL: Patient is awake, alert and oriented x3. Cranial nerves 2 through 12 are grossly intact. Please refer to medication reconciliation sheet for a list of medications. The impression and plan of care has been dictated by Kita Leon, Nurse Practitioner as directed. Dr. Xiomara MD I have performed a history and examination and MDM of this patient, discussed the same with the dictator, and agree with the dictator's assessment and plan as written ,documented as a scribe. Based on total visit time, I have performed more than 50% of the visit. Patient Condition at Discharge: Stable Plan - Discharge Summary Discharge Rx Participant: No New Discharge Prescriptions: New predniSONE 10 mg PO DIRECTED #30 tab Acetaminophen Tab [Tylenol] 650 mg PO Q6HR PRN tab PRN Reason: Fever And/ Or Pain Continue Atorvastatin [Lipitor] 10 mg PO DAILY DULoxetine HCL [Cymbalta] 90 mg PO DAILY Albuterol Sulfate [Proair Hfa] 1 - 2 puff INHALATION RT-Q4H PRN PRN Reason: Shortness Of Breath Tiotropium Br/Olodaterol HCl [Stiolto Respimat Inhal [place]] 2 puff INHALATION RT-DAILY Pregabalin [Lyrica] 300 mg PO Q12H Nystatin [Nystop] 1 applic TOPICAL BID PRN PRN Reason: Skin Irritation Nystatin 100,000 Unit/gm Oint [Mycostatin Oint] 1 applic TOPICAL BID PRN PRN Reason: Skin Irritation Aspirin/Acetaminophen/Caffeine [Excedrin Migraine Caplet] 2 tab PO Q6H PRN PRN Reason: Migraine Headache Zolpidem [Ambien] 10 mg PO HS Discharge Medication List Atorvastatin [Lipitor] 10 mg PO DAILY 09/20/15 [History] Albuterol Sulfate [Proair Hfa] 1 - 2 puff INHALATION RT-Q4H PRN 10/21/15 [History] DULoxetine HCL [Cymbalta] 90 mg PO DAILY 10/21/15 [History] Aspirin/Acetaminophen/Caffeine [Excedrin Migraine Caplet] 2 tab PO Q6H PRN 02/13/22 [History] Nystatin 100,000 Unit/gm Oint [Mycostatin Oint] 1 applic TOPICAL BID PRN 02/13/22 [History] Nystatin [Nystop] 1 applic TOPICAL BID PRN 02/13/22 [History] Pregabalin [Lyrica] 300 mg PO Q12H 02/13/22 [History] Tiotropium Br/Olodaterol HCl [Stiolto Respimat Inhal [place]] 2 puff INHALATION RT-DAILY 02/13/22 [History] Zolpidem [Ambien] 10 mg PO HS 02/13/22 [History] Acetaminophen Tab [Tylenol] 650 mg PO Q6HR PRN tab 02/15/22 [Rx] predniSONE 10 mg PO DIRECTED #30 tab 02/15/22 [Rx] Follow up Appointment(s)/Referral(s): Jay Hough III, MD [Primary Care Provider] - 02/23/22 9:30 am (Tele-health appointment) Marin Sheehan DO [Doctor of Osteopathic Medicine] - 03/30/22 1:15 pm (Office will put patient on a cancellation list, and contact patient for an earlier appointment if they can) Patient Instructions/Handouts: COPD (Chronic Obstructive Pulmonary Disease) (DC), COVID-19 (Coronavirus Disease 2019) (DC) Activity/Diet/Wound Care/Special Instructions: Activity Limited until follow-up Follow-up with primary care provider on discharge Continue taking prednisone taper as prescribed Continue with inhalers as instructed Recommend follow-up with pulmonary in the next 2-3 weeks Discharge Disposition: HOME SELF-CARE
== END 2022-02-15 14:57 | disposition home or self-care (01) | DRG 177 ==
LOC: EC 18:27 → 4SSUR 20:44
PROVIDERS: ADMIT Hospitalist; ATTEND Hospitalist
DX: U07.1 COVID-19 (principal); J96.01 Acute respiratory failure with hypoxia; J44.1 Chronic obstructive pulmonary disease with (acute) exacerbation; I10 Essential (primary) hypertension; F17.210 Nicotine dependence, cigarettes, uncomplicated; E78.5 Hyperlipidemia, unspecified; M79.7 Fibromyalgia; F32.A Depression, unspecified; G89.29 Other chronic pain; Z71.6 Tobacco abuse counseling
CPT/HCPCS: 36415; 71046; 80048; 80053; 83605; 83880; 84145; 84484; 85025; 85379; 85610; 85730; 87502; 87635; 93005; 94640; 99285

== ENCOUNTER → 2022-04-26 | Outpatient (CLI) | payer MEDICARE ==
--- NOTE | 2022-04-26 19:51 | MR ---
EXAMINATION TYPE: MR brain wo/w con DATE OF EXAM: 04/26/2022 COMPARISON: CT brain 04/27/2022. HISTORY: Headaches, dizziness, history of falling and hitting back of head TECHNIQUE: Multiplanar, multisequence images of the brain and brainstem is performed without and with IV contras t, utilizing 10 mL intravenous Gadavist . FINDINGS: Diffusion weighted images demonstrate no evidence of a recent infarct or other diffusion ab normality. There is no extra-axial fluid collection. Scattered high T2 signal foci seen throughout t he deep white matter. The ventricular system and cisternal spaces are normal in size and appearance. The brain volume is age appropriate. Left occipital lobe partially calcified meningioma measures up to 13 x 14 x 16 mm and demonstrates nearly homogenous enhancement with suspected areas of calcificat ion on CT demonstrating low T1 signal. Post contrast images demonstrate no additional abnormal enhanc ement. Midline structures demonstrate normal morphology. The craniocervical junction appears within normal l imits. The dural venous sinuses appear patent. The visualized sinuses are clear and the globes are i ntact. IMPRESSION: 1. No evidence of intracranial mass, acute/subacute infarct, or abnormal enhancement. 2. Nonspecific white matter changes, likely related to small vessel ischemic disease 3. Stable 16 mm left occipital meningioma.
== END | disposition home or self-care (01) ==
LOC: RADMRIMAIN 17:07
PROVIDERS: ATTEND Family Medicine
DX: D32.0 Benign neoplasm of cerebral meninges (principal)
CPT/HCPCS: 70553; A9585

== ENCOUNTER 2022-10-24 10:02 | Observation (INO) | payer MEDICARE ==
[2022-10-24] MEDS ORDERED: SODIUM CHLORIDE 0.9% 500 ML 500 ML IV STA (10:25)
--- NOTE | 2022-10-24 10:28 | ED ---
General Adult HPI - General Chief complaint: Abdominal Pain Stated complaint: abd pain Time Seen by Provider: 10/24/22 10:15 Source: patient, RN notes reviewed, old records reviewed Mode of arrival: ambulatory Limitations: no limitations - History of Present Illness Initial comments: This is a 57-year-old female presents emergency department stating she woke up today and rolled over and noticed that she had lower abdominal pain. She thought it was mostly on the left when you palpate is on the right suprapubic region and left. Patient denies any fever chills or cough. Patient denies any back pain. Patient denies any dysuria however she states when she urinates she has discomfort in the suprapubic region. Patient denies any vomiting or nausea. Patient states she did have an episode of diarrhea but does not unusual for her. Patient denies any other symptoms at this time - Related Data Home Medications Medication Instructions Recorded Confirmed Atorvastatin [Lipitor] 10 mg PO DAILY 09/20/15 02/13/22 Albuterol Sulfate [Proair Hfa] 1 - 2 puff INHALATION RT-Q4H PRN 10/21/15 02/13/22 DULoxetine HCL [Cymbalta] 90 mg PO DAILY 10/21/15 02/13/22 Aspirin/Acetaminophen/Caffeine 2 tab PO Q6H PRN 02/13/22 02/13/22 [Excedrin Migraine Caplet] Nystatin 100,000 Unit/gm Oint 1 applic TOPICAL BID PRN 02/13/22 02/13/22 [Mycostatin Oint] Nystatin [Nystop] 1 applic TOPICAL BID PRN 02/13/22 02/13/22 Pregabalin [Lyrica] 300 mg PO Q12H 02/13/22 02/13/22 Tiotropium Br/Olodaterol HCl 2 puff INHALATION RT-DAILY 02/13/22 02/13/22 [Stiolto Respimat Inhal [place]] Zolpidem [Ambien] 10 mg PO HS 02/13/22 02/13/22 Previous Rx's Medication Instructions Recorded Acetaminophen Tab [Tylenol] 650 mg PO Q6HR PRN tab 02/15/22 predniSONE 10 mg PO DIRECTED #30 tab 02/15/22 Allergies Allergy/AdvReac Type Severity Reaction Status Date / Time No Known Allergies Allergy Verified 10/24/22 10:16 Review of Systems ROS Statement: Those systems with pertinent positive or pertinent negative responses have been documented in the HPI. ROS Other: All systems not noted in ROS Statement are negative. Past Medical History Past Medical History: Fibromyalgia, Hyperlipidemia History of Any Multi-Drug Resistant Organisms: None Reported Past Surgical History: Back Surgery Additional Past Surgical History / Comment(s): hx chronic back pain withnerve damage Past Anesthesia/Blood Transfusion Reactions: No Reported Reaction Past Psychological History: No Psychological Hx Reported Smoking Status: Current every day smoker Past Alcohol Use History: Rare Past Drug Use History: Marijuana General Exam - General Exam Comments Initial Comments: GENERAL: Patient is well-developed and well-nourished. Patient is nontoxic and well- hydrated and is in mild distress. ENT: Neck is soft and supple. No significant lymphadenopathy is noted. Oropharynx is clear. Moist mucous membranes. Neck has full range of motion without eliciting any pain. EYES: The sclera were anicteric and conjunctiva were pink and moist. Extraocular movements were intact and pupils were equal round and reactive to light. Eyelids were unremarkable. PULMONARY: Unlabored respirations. Good breath sounds bilaterally. No audible rales rhonchi or wheezing was noted. CARDIOVASCULAR: There is a regular rate and rhythm without any murmurs gallops or rubs. ABDOMEN: Patient has tenderness in the right lower suprapubic and left lower quadrant SKIN: Skin is clear with no lesions or rashes and otherwise unremarkable. NEUROLOGIC: Patient is alert and oriented x3. Cranial nerves II through XII are grossly intact. Motor and sensory are also intact. Normal speech, volume and content. Symmetrical smile. MUSCULOSKELETAL: Normal extremities with adequate strength and full range of motion. LYMPHATICS: No significant lymphadenopathy is noted PSYCHIATRIC: Normal psychiatric evaluation. Limitations: no limitations Course Vital Signs 10/24/22 10:14 Temperature 98.2 F Pulse Rate 74 Respiratory 18 Rate Blood Pressure 120/88 O2 Sat by Pulse 94 L Oximetry Medical Decision Making - Medical Decision Making Was pt. sent in by a medical professional or institution (, [facility], CERTIFIED ALCOHOL AND DRUG COUNSELOR, urgent care, hospital, or long term...) When possible be specific @ -[No] Did you speak to anyone other than the patient for history (EMS, parent, family, police, friend...)? What history was obtained from this source @ -[No] Did you review nursing and triage notes (agree or disagree)? Why? @ -[I reviewed and agree with nursing and triage notes] Were old charts reviewed (outside hosp., previous admission, EMS record, old EKG, old radiological studies, urgent care reports/EKG's, long term records)? Report findings @ -I reviewed patient's prior charting and prior lab work Differential Diagnosis (chest pain, altered mental status, abdominal pain women, abdominal pain men, vaginal bleeding, weakness, fever, dyspnea, syncope, headache, dizziness, GI bleed, back pain, seizure, CVA, palpatations, mental health, musculoskeletal)? @ -Differential Abdominal Pain Women: Appendicitis, Cholecystitis, diverticulosis, ischemic bowel, pancreatitis, hepatitis, UTI, gastroenteritis, AAA, incarcerated hernia, bowel obstruction, constipation, inflammatory bowel, hepatitis, peptic ulcer disease, splenic infarction, perforated viscus, vulvitis, ovarian torsion, PID, kidney stone, placenta abruption, this is not meant to be an all-inclusive list EKG interpreted by me (3pts min.). @ -[As above] X-rays interpreted by me (1pt min.). @ -[None done] CT interpreted by me (1pt min.). @ -CT of the abdomen and pelvis was interpreted by myself. It shows inflammatory changes around the colon and diverticula consistent with diverticulitis U/S interpreted by me (1pt. min.). @ -[None done] What testing was considered but not performed or refused? (CT, X-rays, U/S, labs)? Why? @ -[None] What meds were considered but not given or refused? Why? @ -[None] Did you discuss the management of the patient with other professionals (professionals i.e. , PA, CERTIFIED ALCOHOL AND DRUG COUNSELOR, lab, RT, psych nurse, social service assistant, food packer, teacher, admissions officer, case packer)? Give summary @ -[No] Was smoking cessation discussed for >3mins.? @ -[No] Was critical care preformed (if so, how long)? @ -[No] Were there social determinants of health that impacted care today? How? (Homelessness, low income, unemployed, alcoholism, drug addiction, transportation, low edu. Level, literacy, decrease access to med. care, fpc, rehab)? @ -[No] Was there de-escalation of care discussed even if they declined (Discuss DNR or withdrawal of care, Hospice)? DNR status @ -[No] What co-morbidities impacted this encounter? (DM, HTN, Smoking, COPD, CAD, Cancer, CVA, ARF, Chemo, Hep., AIDS, mental health diagnosis, sleep apnea, morbid obesity)? @ -[None] Was patient admitted / discharged? Hospital course, mention meds given and route, prescriptions, significant lab abnormalities, going to OR and other pertinent info. @ -Patient was worked up for abdominal pain and after lab work came back and she was still having significant pain I sent her for a CAT scan it showed colitis with diverticulitis. I started the patient on Unasyn gave the patient pain medication. Spoke with the [facility] hospitalist Dr. Colindres and he agreed to admit the patient admitted the patient I wrote admitting orders. Undiagnosed new problem with uncertain prognosis? @ -[No] Drug Therapy requiring intensive monitoring for toxicity (Heparin, Nitro, Insulin, Cardizem)? @ -[No] Were any procedures done? @ -[No] Diagnosis/symptom? @ -Diverticulitis Acute, or Chronic, or Acute on Chronic? @ -Acute Uncomplicated (without systemic symptoms) or Complicated (systemic symptoms)? @ -Complicated Side effects of treatment? @ -[No] Exacerbation, Progression, or Severe Exacerbation? @ -[No] Poses a threat to life or bodily function? How? (Chest pain, [place], [place], pneumonia, PE, COPD, DKA, ARF, appy, cholecystitis, CVA, Diverticulitis, Homicidal, Suicidal, threat to staff... and all critical care pts) @ -Yes this could lead to sepsis and end organ dysfunction - Lab Data Result diagrams: 10/24/22 10:33 10/24/22 10:33 Lab Results 10/24/22 10/24/22 10/24/22 Range/Units 10:33 10:33 10:33 WBC 10.7 H (3.8-10.6) k/uL RBC 4.64 (3.80-5.40) m/uL Hgb 14.6 (11.4-16.0) gm/dL Hct 43.5 (34.0-46.0) % MCV 93.8 (80.0-100.0) fL MCH 31.5 (25.0-35.0) pg MCHC 33.6 (31.0-37.0) g/dL RDW 12.6 (11.5-15.5) % Plt Count 311 (150-450) k/uL MPV 7.1 Neutrophils % 69 % Lymphocytes % 21 % Monocytes % 5 % Eosinophils % 3 % Basophils % 1 % Neutrophils # 7.4 (1.3-7.7) k/uL Lymphocytes # 2.2 (1.0-4.8) k/uL Monocytes # 0.5 (0-1.0) k/uL Eosinophils # 0.3 (0-0.7) k/uL Basophils # 0.1 (0-0.2) k/uL Sodium 139 (137-145) mmol/L Potassium 4.3 (3.5-5.1) mmol/L Chloride 107 (98-107) mmol/L Carbon Dioxide 25 (22-30) mmol/L Anion Gap 7 mmol/L BUN 12 (7-17) mg/dL Creatinine 0.80 (0.52-1.04) mg/dL Est GFR (CKD-EPI)AfAm >90 (>60 ml/min/1.73 sqM) Est GFR (CKD-EPI)NonAf 84 (>60 ml/min/1.73 sqM) Glucose 106 H (74-99) mg/dL Calcium 9.0 (8.4-10.2) mg/dL Total Bilirubin 0.5 (0.2-1.3) mg/dL AST 21 (14-36) U/L ALT 23 (4-34) U/L Alkaline Phosphatase 131 H (38-126) U/L Total Protein 6.8 (6.3-8.2) g/dL Albumin 4.0 (3.5-5.0) g/dL Amylase 55 (30-110) U/L Lipase 159 (23-300) U/L Urine Color Yellow Urine Appearance Cloudy H (Clear) Urine pH 5.5 (5.0-8.0) Ur Specific [place] 1.031 (1.001-1.035) Urine Protein 1+ H (Negative) Urine Glucose (UA) Negative (Negative) Urine Ketones 1+ H (Negative) Urine Blood Negative (Negative) Urine Nitrite Negative (Negative) Urine Bilirubin 1+ H (Negative) Urine Urobilinogen 6.0 (<2.0) mg/dL Ur Leukocyte Esterase Moderate H (Negative) Urine RBC 4 (0-5) /hpf Urine WBC 17 H (0-5) /hpf Ur Squamous Epith Cells 40 H (0-4) /hpf Urine Bacteria Occasional H (None) /hpf Urine Mucus Few H (None) /hpf Disposition Clinical Impression: Diverticulitis Disposition: ADMITTED IP TO THIS HOSP Referrals: Jay Hough III, MD [Primary Care Provider] - 1-2 days Time of Disposition: 12:44
[2022-10-24 10:44] LABS: Basophils # (A) 0.1 k/uL (0-0.2); Basophils % (A) 1 %; Eosinophils # (A) 0.3 k/uL (0-0.7); Eosinophils % (A) 3 %; HCT 43.5 % (34.0-46.0); HGB 14.6 gm/dL (11.4-16.0); Lymphocytes # (A) 2.2 k/uL (1.0-4.8); Lymphocytes % (A) 21 %; MCH 31.5 pg (25.0-35.0); MCHC 33.6 g/dL (31.0-37.0); MCV 93.8 fL (80.0-100.0); Mean Platelet Volume 7.1; Monocytes # (A) 0.5 k/uL (0-1.0); Monocytes % (A) 5 %; Neutrophils # (A) 7.4 k/uL (1.3-7.7); Neutrophils % (A) 69 %; Platelet Count 311 k/uL (150-450); RBC 4.64 m/uL (3.80-5.40); RDW 12.6 % (11.5-15.5); WBC 10.7 k/uL (3.8-10.6)
[2022-10-24 11:00] LABS: ALT 23 U/L (4-34); AST 21 U/L (14-36); African American GFR (CKD) >90 (>60 ml/min/1.73 sqM); Alkaline Phosphatase 131 U/L (38-126); Amylase 55 U/L (30-110); Anion Gap 7 mmol/L; Blood Urea Nitrogen 12 mg/dL (7-17); Carbon Dioxide 25 mmol/L (22-30); Chloride 107 mmol/L (98-107); Glucose 106 mg/dL (74-99); Lipase 159 U/L (23-300); Non-African American GFR(CKD) 84 (>60 ml/min/1.73 sqM); Potassium 4.3 mmol/L (3.5-5.1); Sodium 139 mmol/L (137-145); Total Bilirubin 0.5 mg/dL (0.2-1.3); Total Protein 6.8 g/dL (6.3-8.2)
[2022-10-24 11:02] LABS: Appearance,Urine Cloudy (Clear); Bacteria,Urine Occasional /hpf; Bilirubin,Urine 1+ (Negative); Blood,Urine Negative (Negative); Color,Urine Yellow; Glucose,Urine (UA) Negative (Negative); Ketones,Urine 1+ (Negative); Leukocyte Esterase,Urine Moderate (Negative); Mucus,Urine Few /hpf; Nitrite,Urine Negative (Negative); PH, Urine 5.5 (5.0-8.0); Protein,Urine 1+ (Negative); RBC,Urine 4 /hpf (0-5); Specific Gravity,Urine 1.031 (1.001-1.035); Squamous Epithelial Cell,Urine 40 /hpf (0-4); WBC,Urine 17 /hpf (0-5)
--- NOTE | 2022-10-24 12:18 | CT ---
EXAMINATION TYPE: CT abdomen pelvis wo con CT DLP: 1108.4 mGycm, Automated exposure control for dose reduction was used. DATE OF EXAM: 10/24/2022 11:58 AM COMPARISON: CT abdomen pelvis most recent from 09/20/2015 CLINICAL INDICATION:Female, 57 years old with history of Abdominal pain; abd pain TECHNIQUE: Axial CT of the abdomen and pelvis. Sagittal and coronal reformats were created on a [employer] workstation. Contrast used: None Oral contrast used: without Oral Contrast FINDINGS: LOWER CHEST: Unremarkable ABDOMEN LIVER: Unremarkable GALLBLADDER AND BILE DUCTS: Unremarkable. PANCREAS: Unremarkable. SPLEEN: Unremarkable. ADRENAL GLANDS: Unremarkable. KIDNEYS AND URETERS: No evidence of hydronephrosis or renal calculus. The ureters are unremarkable. PELVIS BLADDER: Unremarkable REPRODUCTIVE: There is enlarged left adnexal lesion which is not seen on prior in 2016. This measures at least 6.8 x 4.1 x 4.2 cm it appears to be emanating off the left gonadal vein/ovary. ABDOMEN & PELVIS STOMACH AND BOWEL: There are colonic diverticula present, some of them have adjacent fat stranding ch anges along a short segment in the lower abdomen approximately 7.9 cm in length. Circumferential wall thickening in this nondistended colon up to 9 mm suggested. No organizing fluid collection or eviden ce of pneumoperitoneum. No evidence of bowel obstruction. PERITONEUM/RETROPERITONEUM: No evidence of pneumoperitoneum or free fluid. VASCULATURE: No evidence of aortic aneurysm. MUSCULOSKELETAL: No acute osseous abnormalities, fixation hardware in the lower lumbar spine hardware appears intact. LYMPH NODES: No gross evidence for lymphadenopathy. SOFT TISSUE/ABDOMINAL WALL: Unremarkable IMPRESSION: 1. Acute colitis/diverticulitis of the sigmoid colon. Short segment measuring up to 7.9 cm of all th ickening with adjacent fat stranding. 2. Left adnexal lesion measuring up to 6.8 cm further evaluation of ultrasound of the pelvis is toño mmended. If there is indeterminate pelvic MRI is recommended.
[2022-10-24] MEDS ORDERED: AMPICILLIN-SULBACTAM 3 GM in SODIUM CHLORIDE 0.9% 100 ML IVPB STA (12:45)
[2022-10-24] MEDS ORDERED: HYDROmorphone 0.5 MG/0.5 ML SYRINGE IVP STA (12:46)
[2022-10-24] MEDS ORDERED: SODIUM CHLORIDE 0.9% 1,000 ML IV ONE (12:51)
[2022-10-24] MEDS ORDERED: MELATONIN 3 MG TABLET PO PRN (13:49)
[2022-10-24] MEDS ORDERED: MAG HYDROX/AL HYDROX/SIMETH 30 ML CUP PO PRN (13:49)
[2022-10-24] MEDS ORDERED: ACETAMINOPHEN TAB 325 MG TAB PO PRN (13:49)
[2022-10-24] MEDS ORDERED: ONDANSETRON 4 MG/2 ML VIAL IVP PRN (13:49)
[2022-10-24] MEDS ORDERED: NALOXONE 0.4 MG/ML 1 ML VIAL IV PRN (13:49)
[2022-10-24] MEDS ORDERED: traMADol 50 MG TAB PO PRN (13:49)
--- NOTE | 2022-10-24 13:49 | P.HPIM ---
History of Present Illness H&P Date: 10/24/22 History of present illness; patient is a 57-year-old lady with past medical history significant for fibromyalgia, COPD, hyperlipidemia presented to the ER because of left-sided abdominal pain. Patient stated that she was all right yesterday evening when she started noticing left-sided abdominal pain that started in the lower part of her abdominal. Pain was sharp and severe in intensity, nonradiating, not associated any nausea or vomiting. Denies any altered bowel movements. Patient denies any chest pain or shortness of breath. This morning her abdominal pain worsened so she decided to come to the ER. WBC 10.7, hemoglobin 14.6, sodium 139, potassium 4.3, chloride 107, BUN 12, creatinine 0.8, glucose 106, platelet phosphatase 131 CT abdomen and pelvis done showed acute colitis/diverticulitis of the sigmoid colon. Short segment measuring up to 7.9 cm of thickening with adjacent fat str anding Patient was admitted to internal medicine service for further evaluation and treatment REVIEW OF SYSTEMS: CONSTITUTIONAL: No fever, no malaise, no fatigue. HEENT: No recent visual problems or hearing problems. Denied any sore throat. CARDIOVASCULAR: No chest pain, orthopnea, PND, no palpitations, no syncope. PULMONARY: No shortness of breath, no cough, no hemoptysis. GASTROINTESTINAL: As mentioned in HPI. NEUROLOGICAL: No headaches, no weakness, no numbness. HEMATOLOGICAL: Denies any bleeding or petechiae. GENITOURINARY: Denies any burning micturition, frequency, or urgency. MUSCULOSKELETAL/RHEUMATOLOGICAL: Denies any joint pain, swelling, or any muscle pain. ENDOCRINE: Denies any polyuria or polydipsia. The rest of the 14-point review of systems is negative. PHYSICAL EXAMINATION: GENERAL: The patient is alert and oriented x3, not in any acute distress. Well developed, well nourished. HEENT: Pupils are round and equally reacting to light. EOMI. No scleral icterus. No conjunctival pallor. Normocephalic, atraumatic. No pharyngeal erythema. No thyromegaly. CARDIOVASCULAR: S1 and S2 present. No murmurs, rubs, or gallops. PULMONARY: Chest is clear to auscultation, no wheezing or crackles. ABDOMEN: Soft, nontender, nondistended, normoactive bowel sounds. No palpable organomegaly. MUSCULOSKELETAL: No joint swelling or deformity. EXTREMITIES: No cyanosis, clubbing, or pedal edema. NEUROLOGICAL: Gross neurological examination did not reveal any focal deficits. SKIN: No rashes. Assessment and plan Acute diverticulitis Left adnexal lesion History of fibromyalgia COPD Hyperlipidemia Plan; Monitor vital signs Monitor CBC Monitor CMP Continue IV fluids Continue IV Unasyn Start patient on clear liquid diet Ordered ultrasound of pelvis Resume home meds Past Medical History Past Medical History: Fibromyalgia, Hyperlipidemia History of Any Multi-Drug Resistant Organisms: None Reported Past Surgical History: Back Surgery Additional Past Surgical History / Comment(s): hx chronic back pain withnerve da mage Past Anesthesia/Blood Transfusion Reactions: No Reported Reaction Past Psychological History: No Psychological Hx Reported Smoking Status: Current every day smoker Past Alcohol Use History: Rare Past Drug Use History: Marijuana Medications and Allergies Home Medications Medication Instructions Recorded Confirmed Type Atorvastatin [Lipitor] 10 mg PO DAILY 09/20/15 02/13/22 History Albuterol Sulfate [Proair Hfa] 1 - 2 puff INHALATION RT-Q4H PRN 10/21/15 02/13/22 History DULoxetine HCL [Cymbalta] 90 mg PO DAILY 10/21/15 02/13/22 History Aspirin/Acetaminophen/Caffeine 2 tab PO Q6H PRN 02/13/22 02/13/22 History [Excedrin Migraine Caplet] Nystatin 100,000 Unit/gm Oint 1 applic TOPICAL BID PRN 02/13/22 02/13/22 History [Mycostatin Oint] Nystatin [Nystop] 1 applic TOPICAL BID PRN 02/13/22 02/13/22 History Pregabalin [Lyrica] 300 mg PO Q12H 02/13/22 02/13/22 History Tiotropium Br/Olodaterol HCl 2 puff INHALATION RT-DAILY 02/13/22 02/13/22 History [Stiolto Respimat Inhal [place]] Zolpidem [Ambien] 10 mg PO HS 02/13/22 02/13/22 History Acetaminophen Tab [Tylenol] 650 mg PO Q6HR PRN tab 02/15/22 Rx predniSONE 10 mg PO DIRECTED #30 tab 02/15/22 Rx Allergies Allergy/AdvReac Type Severity Reaction Status Date / Time No Known Allergies Allergy Verified 05/07/23 10:16 Physical Exam Vitals: Vital Signs Temp Pulse Resp BP Pulse Ox 10/24/22 12:57 68 18 107/80 96 10/24/22 10:14 98.2 F 74 18 120/88 94 L Intake and Output 10/23/22 10/24/22 10/24/22 22:59 06:59 14:59 Other: Weight 99.79 kg Results CBC & Chem 7: 10/24/22 10:33 10/24/22 10:33 Labs: Abnormal Lab Results - Last 24 Hours (Table) 10/24/22 10/24/22 10/24/22 Range/Units 10:33 10:33 10:33 WBC 10.7 H (3.8-10.6) k/uL Glucose 106 H (74-99) mg/dL Alkaline Phosphatase 131 H (38-126) U/L Urine Appearance Cloudy H (Clear) Urine Protein 1+ H (Negative) Urine Ketones 1+ H (Negative) Urine Bilirubin 1+ H (Negative) Ur Leukocyte Esterase Moderate H (Negative) Urine WBC 17 H (0-5) /hpf Ur Squamous Epith Cells 40 H (0-4) /hpf Urine Bacteria Occasional H (None) /hpf Urine Mucus Few H (None) /hpf
[2022-10-24] MEDS: AMPICILLIN-SULBACTAM 3 GM in SODIUM CHLORIDE 0.9% 100 ML IVPB SCH ×2 (17:27→23:14)
[2022-10-25] MEDS: AMPICILLIN-SULBACTAM 3 GM in SODIUM CHLORIDE 0.9% 100 ML IVPB SCH ×2 (05:01→11:31)
[2022-10-25 13:11] VITALS: BP 144/78; PULSE 70; RESP 18; TEMP 98
--- NOTE | 2022-10-25 13:51 | P.DS ---
Providers Date of admission: 10/24/22 12:52 Expected date of discharge: 10/25/22 Attending physician: Audi Colindres MD Primary care physician: Jay Hough [facility] Course: Discharge diagnoses; Acute diverticulitis Left adnexal lesion History of fibromyalgia COPD Hyperlipidemia Hospital course; patient is a 57-year-old lady with past medical history significant for fibromyalgia, COPD, hyperlipidemia presented to the ER because of left-sided abdominal pain. Patient stated that she was all right yesterday evening when she started noticing left-sided abdominal pain that started in the lower part of her abdominal. Pain was sharp and severe in intensity, nonradiating, not associated any nausea or vomiting. Denies any altered bowel movements. Patient denies any chest pain or shortness of breath. This morning her abdominal pain worsened so she decided to come to the ER. WBC 10.7, hemoglobin 14.6, sodium 139, potassium 4.3, chloride 107, BUN 12, creatinine 0.8, glucose 106, platelet phosphatase 131 CT abdomen and pelvis done showed acute colitis/diverticulitis of the sigmoid colon. Short segment measuring up to 7.9 cm of thickening with adjacent fat stranding Patient was admitted to internal medicine service for further evaluation and treatment 10/25. Patient seen and examined. Denies abdominal pain. States she is ready to go home. Explained to her that she needs to go home on oral antibiotics for 9 more days to complete a ten-day course of antibiotics. Patient needs outpatient colonoscopy in 6-8 weeks. Patient also needs ultrasound of pelvis for left adnexal lesion PHYSICAL EXAMINATION: GENERAL: The patient is alert and oriented x3, not in any acute distress. Well developed, well nourished. HEENT: Pupils are round and equally reacting to light. EOMI. No scleral icterus. No conjunctival pallor. Normocephalic, atraumatic. No pharyngeal erythema. No thyromegaly. CARDIOVASCULAR: S1 and S2 present. No murmurs, rubs, or gallops. PULMONARY: Chest is clear to auscultation, no wheezing or crackles. ABDOMEN: Soft, nontender, nondistended, normoactive bowel sounds. No palpable organomegaly. MUSCULOSKELETAL: No joint swelling or deformity. EXTREMITIES: No cyanosis, clubbing, or pedal edema. NEUROLOGICAL: Gross neurological examination did not reveal any focal deficits. SKIN: No rashes. Patient Condition at Discharge: Good Plan - Discharge Summary Discharge Rx Participant: Yes New Discharge Prescriptions: New Amoxic-Pot Clav 875-125Mg [Augmentin 875-125] 1 tab PO Q12HR 9 Days #18 tab Continue Atorvastatin [Lipitor] 10 mg PO DAILY DULoxetine HCL [Cymbalta] 90 mg PO DAILY Albuterol Sulfate [Proair Hfa] 1 - 2 puff INHALATION RT-Q4H PRN PRN Reason: Shortness Of Breath Pregabalin [Lyrica] 300 mg PO Q12H Aspirin/Acetaminophen/Caffeine [Excedrin Migraine Caplet] 2 tab PO Q6H PRN PRN Reason: Migraine Headache Zolpidem [Ambien] 5 mg PO HS Discharge Medication List Atorvastatin [Lipitor] 10 mg PO DAILY 09/20/15 [History] Albuterol Sulfate [Proair Hfa] 1 - 2 puff INHALATION RT-Q4H PRN 10/21/15 [History] DULoxetine HCL [Cymbalta] 90 mg PO DAILY 10/21/15 [History] Aspirin/Acetaminophen/Caffeine [Excedrin Migraine Caplet] 2 tab PO Q6H PRN 02/13/22 [History] Pregabalin [Lyrica] 300 mg PO Q12H 02/13/22 [History] Zolpidem [Ambien] 5 mg PO HS 10/24/22 [History] Amoxic-Pot Clav 875-125Mg [Augmentin 875-125] 1 tab PO Q12HR 9 Days #18 tab 10/25/22 [Rx] Follow up Appointment(s)/Referral(s): Jay Hough III, MD [Primary Care Provider] - 1-2 days
== END 2022-10-25 16:50 | disposition home or self-care (01) ==
LOC: EC 10:02 → INTOOBSV 12:52 → 5NMEDONC 12:52 → UNDODISIN 10-25 16:50
PROVIDERS: ADMIT Internal Medicine; ATTEND Internal Medicine
DX: K57.32 Diverticulitis of large intestine without perforation or abscess without bleeding (principal); E78.5 Hyperlipidemia, unspecified; M79.7 Fibromyalgia; J44.9 Chronic obstructive pulmonary disease, unspecified; N83.9 Noninflammatory disorder of ovary, fallopian tube and broad ligament, unspecified; F17.200 Nicotine dependence, unspecified, uncomplicated; Z79.899 Other long term (current) drug therapy
CPT/HCPCS: 96361 ×2; 96366 ×2; 96365; 96375; 99285; 36415; 80053; 82150; 83690; 85025; 81001; 74176; G0378 ×2; J0295 ×2; J1170

== ENCOUNTER → 2023-01-25 | Outpatient (CLI) | payer MEDICARE ==
--- NOTE | 2023-01-25 16:13 | US ---
EXAMINATION TYPE: US pelvis complete transvag DATE OF EXAM: 01/25/2023 COMPARISON: 10/24/2022 CT. CLINICAL INDICATION: Female, 57 years old with history of R19.09 INTRA ABD AND PELVIC SWELLING; follo w up on known left adnexal mass TECHNIQUE: Transvaginal (TV) and Transabdominal (TA) . Transabdominal sonographic images of the pel vis were acquired. Transvaginal sonographic images were medically necessary to better assess the fol lowing anatomy: uterus and left adnexal mass EXAM MEASUREMENTS: Uterus: 4.5x 2.0 x 3.4 cm Endometrial Stripe: 0.4 cm Right Ovary: not seen Left Ovary: not seen 1. Uterus: Anteverted atrophied, wnl 2. Endometrium: wnl 3. Right Ovary: not seen 4. Left Ovary: not seen 5. Bilateral Adnexa: 6.6 x 4.0 x 5.4cm somewhat lobular homogeneous solid mass noted within the left adnexa with internal vascularity 6. Posterior cul-de-sac: minimal free fluid noted IMPRESSION: 1. Redemonstration of left adnexal mass which is indeterminate. 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 MRI with IV contrast his recommended for complete evaluation. 2. No evidence for acute process.
== END | disposition home or self-care (01) ==
LOC: RADUSWWP 14:54
PROVIDERS: ATTEND Family Medicine
DX: R19.09 Other intra-abdominal and pelvic swelling, mass and lump (principal)
CPT/HCPCS: 76830; 76856

== ENCOUNTER → 2023-06-21 | Outpatient (CLI) | payer MEDICARE ==
--- NOTE | 2023-06-24 09:00 | MR ---
EXAMINATION TYPE: MR pelvis wo/w con DATE OF EXAM: 06/21/2023 8:00 AM CLINICAL INDICATION:Female, 58 years old with history of N83.8 OVARIAN MASS; Pelvic pain, abnormal US . COMPARISON: 12/08/2018, 09/20/2015. TECHNIQUE: Triplane multisequence imaging was performed of the pelvis. IV Contrast: 11 cc Gadavist FINDINGS: Reproductive: Vagina: Unremarkable. Uterus: The uterus is anteverted in position. Uterus measures 8.5 x x cm. The endometrium and junctio nal zone are within normal limits. Multiple nabothian cysts are seen in the lower uterine segment. Ovaries: Follicular changes are noted to the ovaries. Adnexal mass measuring 5.5 x 4.4 x 7.4 cm appears separate from the uterus and appears to be originat ing from the left pelvis. This is predominantly low T1 signal mass with minimal postcontrast enhancem ent. Previously this measured up to 3.7 x 3.1 cm on 09/20/2015. On T2-weighted imaging and has predomin antly low T2 signal with multiple areas of higher T2 signal possibly representing cystic change inter rikki. Bladder: Unremarkable. Bowel: Scattered colonic diverticula. Peritoneum: A small amount of free fluid in the pelvis. Lymph nodes: No evidence of adenopathy. Vasculature: Unremarkable. Musculoskeletal: Bone marrow signal is within normal signal intensity. Partially visualized susceptib ility artifact in the pelvis. Abdominal wall/soft tissues: Unremarkable. IMPRESSION: Left adnexal mass favored represent ovarian etiology given prior imaging showing mass LBS smaller on prior. Findings could represent 6 cord/stromal tumor such as a fibroma/fibrothecoma or thecoma. Other etiologies include dysgerminoma versus epithelial tumors. No lymphadenopathy is present.
== END | disposition home or self-care (01) ==
LOC: RADMRIMAIN 06:52
PROVIDERS: ATTEND Internal Medicine
DX: N83.8 Other noninflammatory disorders of ovary, fallopian tube and broad ligament (principal)
CPT/HCPCS: 72197; A9585